=== PATIENT | male | born 1950 | race African-American/Black ===

== ENCOUNTER 2016-03-09 10:23 | Inpatient (IN) | payer OTHER, BC ==
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
[2016-03-09] MEDS ORDERED: MENTHOL/PHENOL 1 EACH UD MM PRN (12:54)
[2016-03-09] MEDS ORDERED: guaiFENesin/D-METHORPHAN HB 10 ML UNIT-DOSE CUPS PO PRN (12:54)
[2016-03-09] MEDS ORDERED: MAG HYDROX/AL HYDROX/SIMETH 30 ML UNIT-DOSE CUP PO PRN (12:54)
[2016-03-09] MEDS ORDERED: P-EPHED 60MG/TRIPROLIDI 2.5MG TABLET PO PRN (12:54)
[2016-03-09] MEDS ORDERED: MAGNESIUM HYDROX 2400MG/30ML ORAL SUSPENSION 30 ML CUP PO PRN (12:54)
[2016-03-09] MEDS ORDERED: LOPERAMIDE HCL 2 MG CAPSULE PO PRN (12:54)
[2016-03-09] MEDS ORDERED: MAGNESIUM CITRATE 300 ML BOTTLE PO PRN (12:54)
[2016-03-09] MEDS ORDERED: DOCUSATE SODIUM 100 MG CAPSULE (FP) PO PRN (13:09)
[2016-03-09] MEDS ORDERED: METHADONE HCL 10 MG TABLET (FOR DETOX USE ONLY) PO ONE ×2 (14:00→23:00)
[2016-03-09] MEDS: cloNIDine HCL 0.1 MG TABLET PO SCH ×2 (14:40→22:24)
[2016-03-09] MEDS: diazePAM 5 MG TABLET PO PRN ×2 (14:40→22:23)
[2016-03-09 16:48] LABS: URINE APPEARANCE CLEAR; URINE BILIRUBIN NEGATIVE (NEGATIVE); URINE BLOOD NEGATIVE (NEGATIVE); URINE COLOR DKYELLOW; URINE GLUCOSE (UA) NEGATIVE (NEGATIVE); URINE KETONE NEGATIVE (NEGATIVE); URINE LEUK ESTERASE NEGATIVE (NEGATIVE); URINE NITRITE NEGATIVE (NEGATIVE); URINE UROBILINOGEN 2.0 E.U/dl E.U./dl (0.2-1.0)
[2016-03-09 17:11] LABS: URINE PROTEIN 2+ (NEGATIVE)
[2016-03-09] MEDS: metFORMIN HCL 500 MG TABLET (FP) PO SCH (17:22)
[2016-03-09 18:26] LABS: URINE MUCUS RARE; URINE RBC 1 /hpf (0-3); URINE WBC 1 /hpf (3-5)
--- NOTE | 2016-03-09 19:33 | PN ---
[facility] Progress Note Note: received nurse call metformin bid requests finger stick bid bgm bid continue detox
[2016-03-09] MEDS: THIAMINE HCL 100 MG TABLET (FP) PO SCH (22:23)
[2016-03-09] MEDS: MYCOPHENOLATE MOFETIL 500 MG PO SCH (22:24)
[2016-03-09] MEDS: TACROLIMUS 1 MG PO SCH (22:24)
[2016-03-09] MEDS: diphenhydrAMINE HCL 50 MG CAPSULE PO PRN (22:25)
[2016-03-10] MEDS: diazePAM 5 MG TABLET PO PRN ×3 (05:41→17:59)
[2016-03-10] MEDS: sitaGLIPtin PHOSPHATE 100 MG TABLET (FP) PO SCH (07:48)
[2016-03-10] MEDS: metFORMIN HCL 500 MG TABLET (FP) PO SCH ×2 (07:48→17:57)
[2016-03-10 10:00] LABS: MCH 27.2 pg (25.7-33.7); MCHC 32.8 g/dl (32.0-35.9); PLATELET COUNT 174 K/MM3 (134-434); RDW 15.2 % (11.9-15.9); WHITE BLOOD COUNT 4.6 K/mm3 (4.0-10.0)
[2016-03-10] MEDS ORDERED: MINOXIDIL 2.5 MG PO SCH (10:00)
[2016-03-10] MEDS ORDERED: METHADONE HCL 10 MG TABLET (FOR DETOX USE ONLY) PO ONE (10:00)
[2016-03-10 10:41] LABS: ALBUMIN 4.2 g/dl (3.4-5.0); ALK PHOS 99 U/L (45-117); ANION GAP 12 (8-16); BILIRUBIN,TOTAL 0.6 mg/dL (0.2-1.0); CALCIUM 9.1 mg/dL (8.5-10.1); CO2 26 mmol/L (21-32); GLUCOSE,RANDOM 104 mg/dL (74-106); SGOT/AST 16 U/L (15-37); SGPT/ALT 19 U/L (12-78); TOT PROT 7.4 g/dl (6.4-8.2)
[2016-03-10] MEDS: cloNIDine HCL 0.1 MG TABLET PO SCH ×2 (10:55→22:14)
[2016-03-10] MEDS: PRENATAL VITAMINS W/ FOLIC ACID TABLET (FP) PO SCH (10:55)
[2016-03-10] MEDS: TACROLIMUS 1 MG PO SCH ×2 (10:56→22:16)
[2016-03-10] MEDS: MINOXIDIL 2.5 MG TABLET PO SCH (10:57)
[2016-03-10] MEDS: MYCOPHENOLATE MOFETIL 500 MG PO SCH ×2 (10:57→22:14)
[2016-03-10 10:58] LABS: SICKLE CELL SCREEN NEGATIVE (NEGATIVE)
--- NOTE | 2016-03-10 13:19 | PN ---
S COWS - Scale Resting Pulse: 0= HI 80 or Below Sweatin= Chills/Flushing Restless Observation: 3= Extraneous Movement Pupil Size: 2= Moderately Dilated Bone or Joint Aches: 4=Acute Joint/Muscle Pain Runny Nose/ Eye Tearin= Nasal Congestion GI Upset > 30mins: 1= Stomach Cramp Tremor Observation of Outstretched Hands: 1= Tremor [place], Not Seen Yawning Observation: 1= 1-2x During Session Anxiety or Irritability: 2=Irritable/Anxious Goose Flesh Skin: 0=Smooth Skin COWS Score: 16 S Progress Note (SOAP) Subjective: ANXIETY,TREMORS,NAUSEA, NO BM X 2-3 DAYS. Objective: 03/10/16 13:18 Vital Signs Temperature 96.2 F L 03/10/16 10:42 Pulse Rate 76 03/10/16 10:42 Respiratory Rate 18 03/10/16 10:42 Blood Pressure 157/81 03/10/16 10:42 O2 Sat by Pulse Oximetry (%) Laboratory Last Values WBC 4.6 K/mm3 (4.0-10.0) 03/10/16 06:00 RBC 5.26 M/mm3 (4.00-5.60) 03/10/16 06:00 Hgb 14.3 GM/dL (11.7-16.9) 03/10/16 06:00 Hct 43.6 % (35.4-49) 03/10/16 06:00 MCV 83.0 fl (80-96) 03/10/16 06:00 MCHC 32.8 g/dl (32.0-35.9) 03/10/16 06:00 RDW 15.2 % (11.9-15.9) 03/10/16 06:00 Plt Count 174 K/MM3 (134-434) 03/10/16 06:00 MPV 10.0 fl (7.5-11.1) 03/10/16 06:00 Sickle Cell Screen Negative (NEGATIVE) 03/10/16 06:00 Sodium 138 mmol/L (136-145) 03/10/16 06:00 Potassium 3.5 mmol/L (3.5-5.1) 03/10/16 06:00 Chloride 100 mmol/L (98-107) 03/10/16 06:00 Carbon Dioxide 26 mmol/L (21-32) 03/10/16 06:00 Anion Gap 12 (8-16) 03/10/16 06:00 BUN 9 mg/dL (7-18) 03/10/16 06:00 Creatinine 1.0 mg/dL (0.7-1.3) 03/10/16 06:00 Creat Clearance w eGFR > 60 (>60) 03/10/16 06:00 POC Glucometer 101 UNITS (()) 03/10/16 05:43 Random Glucose 104 mg/dL (74-106) 03/10/16 06:00 Calcium 9.1 mg/dL (8.5-10.1) 03/10/16 06:00 Total Bilirubin 0.6 mg/dL (0.2-1.0) 03/10/16 06:00 AST 16 U/L (15-37) 03/10/16 06:00 ALT 19 U/L (12-78) 03/10/16 06:00 Alkaline Phosphatase 99 U/L (45-117) 03/10/16 06:00 Total Protein 7.4 g/dl (6.4-8.2) 03/10/16 06:00 Albumin 4.2 g/dl (3.4-5.0) 03/10/16 06:00 Urine Color Dkyellow 03/09/16 14:00 Urine Appearance Clear 03/09/16 14:00 Urine pH 6.0 (5.0-8.0) 03/09/16 14:00 Ur Specific [place] 1.025 (1.001-1.035) 03/09/16 14:00 Urine Protein 2+ (NEGATIVE) H 03/09/16 14:00 Urine Glucose (UA) Negative (NEGATIVE) 03/09/16 14:00 Urine Ketones Negative (NEGATIVE) 03/09/16 14:00 Urine Blood Negative (NEGATIVE) 03/09/16 14:00 Urine Nitrite Negative (NEGATIVE) 03/09/16 14:00 Urine Bilirubin Negative (NEGATIVE) 03/09/16 14:00 Urine Urobilinogen 2.0 e.u/dl E.U./dl (0.2-1.0) 03/09/16 14:00 Ur Leukocyte Esterase Negative (NEGATIVE) 03/09/16 14:00 Urine RBC 1 /hpf (0-3) 03/09/16 14:00 Urine WBC 1 /hpf (3-5) 03/09/16 14:00 Ur Epithelial Cells Rare /hpf (FEW) 03/09/16 14:00 Urine Mucus Rare 03/09/16 14:00 RPR Titer Nonreactive (NONREACTIVE) 03/10/16 06:00 Assessment: 03/10/16 13:18 WITHDRAWAL SX Plan: CONTINUE DETOX
--- NOTE | 2016-03-10 14:29 | EKG ---
Test Reason : Blood Pressure : / mmHG Vent. Rate : 064 BPM Atrial Rate : 064 BPM P-R Int : 178 ms QRS Dur : 078 ms QT Int : 466 ms P-R-T Axes : 019 025 171 degrees QTc Int : 480 ms NORMAL SINUS RHYTHM LEFT VENTRICULAR HYPERTROPHY WITH REPOLARIZATION ABNORMALITY PROLONGED QT ABNORMAL ECG NO PREVIOUS ECGS AVAILABLE Confirmed by JEAN-PAUL MADRIGAL MD ([id number]) on 03/10/2016 2:28:54 PM Referred By: Confirmed By:JEAN-PAUL MADRIGAL MD
--- NOTE | 2016-03-10 15:58 | CONSULT ---
[facility] Psychiatric Consult - Data Date of interview: 03/10/16 Admission source: [facility] Identifying data: This is 65 years old male with no pschiatric hospitalization history intoixicated with : Opioids and Nicotine Substance Abuse History: - Smoking Cessation. Smoking history: Former smoker. Have you smoked in the past 12 months: No. Aproximately how many cigarettes per day: 0. If you are a former smoker, when did you quit?: 25 yrs ago. Cigars Per Day: 0. Hx Chewing Tobacco Use: No. Initiated information on smoking cessation: Yes. 'Breaking Loose' booklet given: 03/09/16. - Substance & Tx. History. Hx Alcohol Use: No. Hx Substance Use: Yes. Substance Use Type : Heroin. Hx Substance Use Treatment: Yes. - Substances Abused. Heroin. Route: Inhalation. Frequency: Daily. Amount used: 10 BAGS. Age of first use: 16. Date of Last Use: 03/08/16. PERCOCET. Route: Oral. Frequency: Daily. Amount used: 50MG. Age of first use: 62. Date of Last Use: 03/02/16 Medical History: HTN Psychiatric History: Patient reports history of Bipolar disorder, reports taking prior to admission: Ambien 10mg po as needed Physical/Sexual Abuse/Trauma History: Denies Additional Comment: Ambien 10mg po as needed. Observation Mental Status Exam - Mental Status Exam Alert and Oriented to: Person Cognitive Function: Fair Patient Appearance: Unkempt Mood: Apprehensive Affect: Mood Congruent Patient Behavior: Cooperative Speech Pattern: Appropriate Voice Loudness: Mildly Soft/Quiet Thought Process: Goal Oriented Thought Disorder: Being Controlled Hallucinations: Denies Suicidal Ideation: Denies Homicidal Ideation: Denies Insight/Judgement: Fair Sleep: Difficulty falling asleep Appetite: Fair Muscle strength/Tone: Normal Gait/Station: Normal Additional Comments: Ambien 10mg po as needed Psychiatric Findings - Problem List ([place] 1, 2,3) (1) Opioid dependence with withdrawal Current Visit: Yes Status: Acute (2) Nicotine dependence Current Visit: Yes Status: Acute (3) Drug-induced mood disorder Current Visit: Yes Status: Suspected (4) Bipolar disorder Current Visit: Yes Status: Suspected - Initial Treatment Plan Initial Treatment Plan: Ambien 10mg po prn for insomnia
[2016-03-10] MEDS: ZOLPIDEM TARTRATE 10 MG TABLET (PARK CARE ONLY) PO PRN (22:14)
[2016-03-10] MEDS: THIAMINE HCL 100 MG TABLET (FP) PO SCH (22:14)
[2016-03-11] MEDS: diazePAM 5 MG TABLET PO PRN ×3 (05:37→17:26)
[2016-03-11] MEDS: metFORMIN HCL 500 MG TABLET (FP) PO SCH ×2 (07:49→17:26)
[2016-03-11] MEDS: sitaGLIPtin PHOSPHATE 100 MG TABLET (FP) PO SCH (07:49)
[2016-03-11] MEDS ORDERED: METHADONE HCL 5 MG TABLET (FOR DETOX USE ONLY) PO ONE (10:00)
[2016-03-11] MEDS: TACROLIMUS 1 MG PO SCH ×2 (10:27→22:14)
[2016-03-11] MEDS: MYCOPHENOLATE MOFETIL 500 MG PO SCH ×2 (10:28→22:14)
[2016-03-11] MEDS: MINOXIDIL 2.5 MG TABLET PO SCH (10:28)
[2016-03-11] MEDS: PRENATAL VITAMINS W/ FOLIC ACID TABLET (FP) PO SCH (10:29)
[2016-03-11] MEDS: METOPROLOL TARTRATE 50 MG TABLET (FP) PO SCH ×2 (10:29→22:13)
[2016-03-11] MEDS: cloNIDine HCL 0.1 MG TABLET PO SCH ×2 (10:29→22:14)
[2016-03-11] MEDS: ASPIRIN 81 MG CHEWABLE TABLETS PO SCH (10:29)
[2016-03-11] MEDS: DOCUSATE SODIUM 100 MG CAPSULE (FP) PO SCH (10:29)
--- NOTE | 2016-03-11 11:28 | PN ---
S COWS - Scale Resting Pulse: 1= [place] 81-100 Sweatin= Chills/Flushing Restless Observation: 3= Extraneous Movement Pupil Size: 2= Moderately Dilated Bone or Joint Aches: 4=Acute Joint/Muscle Pain Runny Nose/ Eye Tearin= Nasal Congestion GI Upset > 30mins: 1= Stomach Cramp Tremor Observation of Outstretched Hands: 1= Tremor [place], Not Seen Yawning Observation: 2= >3x During Session Anxiety or Irritability: 2=Irritable/Anxious Goose Flesh Skin: 0=Smooth Skin COWS Score: 18 BHS Progress Note (SOAP) Subjective: ANXIETY,SWEATS,FATIGUE. Objective: 03/11/16 11:27 Vital Signs Temperature 98.1 F 03/11/16 10:06 Pulse Rate 92 H 03/11/16 10:06 Respiratory Rate 20 03/11/16 10:06 Blood Pressure 163/89 03/11/16 10:06 O2 Sat by Pulse Oximetry (%) Laboratory Last Values WBC 4.6 K/mm3 (4.0-10.0) 03/10/16 06:00 RBC 5.26 M/mm3 (4.00-5.60) 03/10/16 06:00 Hgb 14.3 GM/dL (11.7-16.9) 03/10/16 06:00 Hct 43.6 % (35.4-49) 03/10/16 06:00 MCV 83.0 fl (80-96) 03/10/16 06:00 MCHC 32.8 g/dl (32.0-35.9) 03/10/16 06:00 RDW 15.2 % (11.9-15.9) 03/10/16 06:00 Plt Count 174 K/MM3 (134-434) 03/10/16 06:00 MPV 10.0 fl (7.5-11.1) 03/10/16 06:00 Sickle Cell Screen Negative (NEGATIVE) 03/10/16 06:00 Sodium 138 mmol/L (136-145) 03/10/16 06:00 Potassium 3.5 mmol/L (3.5-5.1) 03/10/16 06:00 Chloride 100 mmol/L (98-107) 03/10/16 06:00 Carbon Dioxide 26 mmol/L (21-32) 03/10/16 06:00 Anion Gap 12 (8-16) 03/10/16 06:00 BUN 9 mg/dL (7-18) 03/10/16 06:00 Creatinine 1.0 mg/dL (0.7-1.3) 03/10/16 06:00 Creat Clearance w eGFR > 60 (>60) 03/10/16 06:00 POC Glucometer 102 UNITS (()) 03/11/16 05:36 Random Glucose 104 mg/dL (74-106) 03/10/16 06:00 Calcium 9.1 mg/dL (8.5-10.1) 03/10/16 06:00 Total Bilirubin 0.6 mg/dL (0.2-1.0) 03/10/16 06:00 AST 16 U/L (15-37) 03/10/16 06:00 ALT 19 U/L (12-78) 03/10/16 06:00 Alkaline Phosphatase 99 U/L (45-117) 03/10/16 06:00 Total Protein 7.4 g/dl (6.4-8.2) 03/10/16 06:00 Albumin 4.2 g/dl (3.4-5.0) 03/10/16 06:00 Urine Color Dkyellow 03/09/16 14:00 Urine Appearance Clear 03/09/16 14:00 Urine pH 6.0 (5.0-8.0) 03/09/16 14:00 Ur Specific [place] 1.025 (1.001-1.035) 03/09/16 14:00 Urine Protein 2+ (NEGATIVE) H 03/09/16 14:00 Urine Glucose (UA) Negative (NEGATIVE) 03/09/16 14:00 Urine Ketones Negative (NEGATIVE) 03/09/16 14:00 Urine Blood Negative (NEGATIVE) 03/09/16 14:00 Urine Nitrite Negative (NEGATIVE) 03/09/16 14:00 Urine Bilirubin Negative (NEGATIVE) 03/09/16 14:00 Urine Urobilinogen 2.0 e.u/dl E.U./dl (0.2-1.0) 03/09/16 14:00 Ur Leukocyte Esterase Negative (NEGATIVE) 03/09/16 14:00 Urine RBC 1 /hpf (0-3) 03/09/16 14:00 Urine WBC 1 /hpf (3-5) 03/09/16 14:00 Ur Epithelial Cells Rare /hpf (FEW) 03/09/16 14:00 Urine Mucus Rare 03/09/16 14:00 RPR Titer Nonreactive (NONREACTIVE) 03/10/16 06:00 Assessment: 03/11/16 11:28 WITHDRAWAL SX Plan: CONTINUE DETOX
[2016-03-11] MEDS: ZOLPIDEM TARTRATE 10 MG TABLET (PARK CARE ONLY) PO PRN (22:09)
[2016-03-11] MEDS: THIAMINE HCL 100 MG TABLET (FP) PO SCH (22:10)
[2016-03-12] MEDS: diazePAM 5 MG TABLET PO PRN ×2 (05:31→10:39)
[2016-03-12] MEDS: sitaGLIPtin PHOSPHATE 100 MG TABLET (FP) PO SCH (07:26)
[2016-03-12] MEDS: metFORMIN HCL 500 MG TABLET (FP) PO SCH ×2 (07:26→17:34)
[2016-03-12] MEDS ORDERED: METHADONE HCL 5 MG TABLET (FOR DETOX USE ONLY) PO ONE (10:00)
[2016-03-12] MEDS: DOCUSATE SODIUM 100 MG CAPSULE (FP) PO SCH (10:33)
[2016-03-12] MEDS: METOPROLOL TARTRATE 50 MG TABLET (FP) PO SCH ×2 (10:34→22:05)
[2016-03-12] MEDS: cloNIDine HCL 0.1 MG TABLET PO SCH ×2 (10:34→22:05)
[2016-03-12] MEDS: ASPIRIN 81 MG CHEWABLE TABLETS PO SCH (10:34)
[2016-03-12] MEDS: MYCOPHENOLATE MOFETIL 500 MG PO SCH ×2 (10:35→22:05)
[2016-03-12] MEDS: TACROLIMUS 1 MG PO SCH ×2 (10:35→22:06)
[2016-03-12] MEDS: MINOXIDIL 2.5 MG TABLET PO SCH (10:36)
[2016-03-12] MEDS: PRENATAL VITAMINS W/ FOLIC ACID TABLET (FP) PO SCH (10:36)
[2016-03-12] MEDS: ACETAMINOPHEN 325 MG TABLET (FP) PO PRN (10:37)
--- NOTE | 2016-03-12 11:14 | PN ---
[facility] Progress Note (SOAP) Subjective: SWEATING,INTERRUPTED SLEEP,RESTLESS Objective: 03/12/16 11:13 Vital Signs - 8 hr 03/12/16 03/12/16 03/12/16 03:25 06:32 07:46 Temperature 97.6 F Pulse Rate 70 74 82 Respiratory 18 18 Rate Blood Pressure 154/97 136/88 03/12/16 11:00 Temperature 97 F L Pulse Rate 78 Respiratory 20 Rate Blood Pressure 179/87 Laboratory Tests 03/09/16 03/09/16 03/09/16 12:42 14:00 15:59 WBC RBC Hgb Hct MCV MCHC RDW Plt Count MPV Sickle Cell Screen Sodium Potassium Chloride Carbon Dioxide Anion Gap BUN Creatinine Creat Clearance w eGFR POC Glucometer 113 130 Random Glucose Calcium Total Bilirubin AST ALT Alkaline Phosphatase Total Protein Albumin Urine Color Dkyellow Urine Appearance Clear Urine pH 6.0 Ur Specific [place] 1.025 Urine Protein 2+ H Urine Glucose (UA) Negative Urine Ketones Negative Urine Blood Negative Urine Nitrite Negative Urine Bilirubin Negative Urine Urobilinogen 2.0 e.u/dl Ur Leukocyte Esterase Negative Urine RBC 1 Urine WBC 1 Ur Epithelial Cells Rare Urine Mucus Rare RPR Titer 03/10/16 03/10/16 03/10/16 05:43 06:00 06:00 WBC 4.6 RBC 5.26 Hgb 14.3 Hct 43.6 MCV 83.0 MCHC 32.8 RDW 15.2 Plt Count 174 MPV 10.0 Sickle Cell Screen Negative Sodium 138 Potassium 3.5 Chloride 100 Carbon Dioxide 26 Anion Gap 12 BUN 9 Creatinine 1.0 Creat Clearance w eGFR > 60 POC Glucometer 101 Random Glucose 104 Calcium 9.1 Total Bilirubin 0.6 AST 16 ALT 19 Alkaline Phosphatase 99 Total Protein 7.4 Albumin 4.2 Urine Color Urine Appearance Urine pH Ur Specific [place] Urine Protein Urine Glucose (UA) Urine Ketones Urine Blood Urine Nitrite Urine Bilirubin Urine Urobilinogen Ur Leukocyte Esterase Urine RBC Urine WBC Ur Epithelial Cells Urine Mucus RPR Titer 03/10/16 03/10/16 03/11/16 06:00 16:22 05:36 WBC RBC Hgb Hct MCV MCHC RDW Plt Count MPV Sickle Cell Screen Sodium Potassium Chloride Carbon Dioxide Anion Gap BUN Creatinine Creat Clearance w eGFR POC Glucometer 102 102 Random Glucose Calcium Total Bilirubin AST ALT Alkaline Phosphatase Total Protein Albumin Urine Color Urine Appearance Urine pH Ur Specific [place] Urine Protein Urine Glucose (UA) Urine Ketones Urine Blood Urine Nitrite Urine Bilirubin Urine Urobilinogen Ur Leukocyte Esterase Urine RBC Urine WBC Ur Epithelial Cells Urine Mucus RPR Titer Nonreactive 03/11/16 03/12/16 16:34 05:29 WBC RBC Hgb Hct MCV MCHC RDW Plt Count MPV Sickle Cell Screen Sodium Potassium Chloride Carbon Dioxide Anion Gap BUN Creatinine Creat Clearance w eGFR POC Glucometer 100 115 Random Glucose Calcium Total Bilirubin AST ALT Alkaline Phosphatase Total Protein Albumin Urine Color Urine Appearance Urine pH Ur Specific [place] Urine Protein Urine Glucose (UA) Urine Ketones Urine Blood Urine Nitrite Urine Bilirubin Urine Urobilinogen Ur Leukocyte Esterase Urine RBC Urine WBC Ur Epithelial Cells Urine Mucus RPR Titer LABS NOTED Assessment: 03/12/16 11:13 WITHDRAWAL SX. Plan: CONTINUE DETOX
[2016-03-12] MEDS: THIAMINE HCL 100 MG TABLET (FP) PO SCH (22:04)
[2016-03-12] MEDS: ZOLPIDEM TARTRATE 10 MG TABLET (PARK CARE ONLY) PO PRN (22:08)
[2016-03-13] MEDS: sitaGLIPtin PHOSPHATE 100 MG TABLET (FP) PO SCH (07:00)
[2016-03-13] MEDS: metFORMIN HCL 500 MG TABLET (FP) PO SCH ×2 (07:00→17:15)
[2016-03-13] MEDS ORDERED: METHADONE HCL 10 MG TABLET (FOR DETOX USE ONLY) PO ONE (10:00)
[2016-03-13] MEDS: PRENATAL VITAMINS W/ FOLIC ACID TABLET (FP) PO SCH (10:10)
[2016-03-13] MEDS: MYCOPHENOLATE MOFETIL 500 MG PO SCH ×2 (10:11→21:30)
[2016-03-13] MEDS: cloNIDine HCL 0.1 MG TABLET PO SCH ×2 (10:11→21:30)
[2016-03-13] MEDS: ASPIRIN 81 MG CHEWABLE TABLETS PO SCH (10:11)
[2016-03-13] MEDS: METOPROLOL TARTRATE 50 MG TABLET (FP) PO SCH ×2 (10:11→21:31)
[2016-03-13] MEDS: TACROLIMUS 1 MG PO SCH ×2 (10:12→21:31)
[2016-03-13] MEDS: MINOXIDIL 2.5 MG TABLET PO SCH (10:13)
[2016-03-13] MEDS: DOCUSATE SODIUM 100 MG CAPSULE (FP) PO SCH (10:39)
--- NOTE | 2016-03-13 14:49 | PN ---
[facility] Progress Note (SOAP) Subjective: Anxious, restless, interrupted sleep, sweating Objective: 03/13/16 14:46 Last Vital Signs Temp Pulse Resp BP Pulse Ox 96.6 F L 71 20 136/84 03/13/16 12:31 03/13/16 12:31 03/13/16 12:31 03/13/16 12:31 Laboratory Tests 03/09/16 03/09/16 03/09/16 12:42 14:00 15:59 WBC RBC Hgb Hct MCV MCHC RDW Plt Count MPV Sickle Cell Screen Sodium Potassium Chloride Carbon Dioxide Anion Gap BUN Creatinine Creat Clearance w eGFR POC Glucometer 113 130 Random Glucose Calcium Total Bilirubin AST ALT Alkaline Phosphatase Total Protein Albumin Urine Color Dkyellow Urine Appearance Clear Urine pH 6.0 Ur Specific [place] 1.025 Urine Protein 2+ H Urine Glucose (UA) Negative Urine Ketones Negative Urine Blood Negative Urine Nitrite Negative Urine Bilirubin Negative Urine Urobilinogen 2.0 e.u/dl Ur Leukocyte Esterase Negative Urine RBC 1 Urine WBC 1 Ur Epithelial Cells Rare Urine Mucus Rare RPR Titer 03/10/16 03/10/16 03/10/16 05:43 06:00 06:00 WBC 4.6 RBC 5.26 Hgb 14.3 Hct 43.6 MCV 83.0 MCHC 32.8 RDW 15.2 Plt Count 174 MPV 10.0 Sickle Cell Screen Negative Sodium 138 Potassium 3.5 Chloride 100 Carbon Dioxide 26 Anion Gap 12 BUN 9 Creatinine 1.0 Creat Clearance w eGFR > 60 POC Glucometer 101 Random Glucose 104 Calcium 9.1 Total Bilirubin 0.6 AST 16 ALT 19 Alkaline Phosphatase 99 Total Protein 7.4 Albumin 4.2 Urine Color Urine Appearance Urine pH Ur Specific [place] Urine Protein Urine Glucose (UA) Urine Ketones Urine Blood Urine Nitrite Urine Bilirubin Urine Urobilinogen Ur Leukocyte Esterase Urine RBC Urine WBC Ur Epithelial Cells Urine Mucus RPR Titer 03/10/16 03/10/16 03/11/16 06:00 16:22 05:36 WBC RBC Hgb Hct MCV MCHC RDW Plt Count MPV Sickle Cell Screen Sodium Potassium Chloride Carbon Dioxide Anion Gap BUN Creatinine Creat Clearance w eGFR POC Glucometer 102 102 Random Glucose Calcium Total Bilirubin AST ALT Alkaline Phosphatase Total Protein Albumin Urine Color Urine Appearance Urine pH Ur Specific [place] Urine Protein Urine Glucose (UA) Urine Ketones Urine Blood Urine Nitrite Urine Bilirubin Urine Urobilinogen Ur Leukocyte Esterase Urine RBC Urine WBC Ur Epithelial Cells Urine Mucus RPR Titer Nonreactive 03/11/16 03/12/16 03/12/16 16:34 05:29 17:33 WBC RBC Hgb Hct MCV MCHC RDW Plt Count MPV Sickle Cell Screen Sodium Potassium Chloride Carbon Dioxide Anion Gap BUN Creatinine Creat Clearance w eGFR POC Glucometer 100 115 120 Random Glucose Calcium Total Bilirubin AST ALT Alkaline Phosphatase Total Protein Albumin Urine Color Urine Appearance Urine pH Ur Specific [place] Urine Protein Urine Glucose (UA) Urine Ketones Urine Blood Urine Nitrite Urine Bilirubin Urine Urobilinogen Ur Leukocyte Esterase Urine RBC Urine WBC Ur Epithelial Cells Urine Mucus RPR Titer 03/13/16 05:40 WBC RBC Hgb Hct MCV MCHC RDW Plt Count MPV Sickle Cell Screen Sodium Potassium Chloride Carbon Dioxide Anion Gap BUN Creatinine Creat Clearance w eGFR POC Glucometer 127 Random Glucose Calcium Total Bilirubin AST ALT Alkaline Phosphatase Total Protein Albumin Urine Color Urine Appearance Urine pH Ur Specific [place] Urine Protein Urine Glucose (UA) Urine Ketones Urine Blood Urine Nitrite Urine Bilirubin Urine Urobilinogen Ur Leukocyte Esterase Urine RBC Urine WBC Ur Epithelial Cells Urine Mucus RPR Titer Labs noted: UA: 2+ protein Assessment: 03/13/16 14:48 Withdrawal symptoms Noted with proteinuria Plan: Continue detox Proteinuria: encouraged to drink more water, repeat UA
[2016-03-13] MEDS: THIAMINE HCL 100 MG TABLET (FP) PO SCH (21:30)
[2016-03-13] MEDS: ACETAMINOPHEN 325 MG TABLET (FP) PO PRN (21:32)
[2016-03-13] MEDS: ZOLPIDEM TARTRATE 10 MG TABLET (PARK CARE ONLY) PO PRN (21:34)
[2016-03-14] MEDS ORDERED: METHADONE HCL 5 MG TABLET (FOR DETOX USE ONLY) PO ONE (06:00)
[2016-03-14] MEDS: metFORMIN HCL 500 MG TABLET (FP) PO SCH ×2 (07:07→17:16)
[2016-03-14] MEDS: sitaGLIPtin PHOSPHATE 100 MG TABLET (FP) PO SCH (07:07)
--- NOTE | 2016-03-14 09:44 | PN ---
[facility] Progress Note (SOAP) Subjective: sweating,interrupted sleep,restless Objective: 03/14/16 09:43 Vital Signs - 8 hr 03/14/16 06:14 Temperature 97.5 F L Pulse Rate 74 Respiratory 18 Rate Blood Pressure 132/88 Assessment: 03/14/16 09:44 withdrawal sx. Plan: continue detox
[2016-03-14] MEDS: TACROLIMUS 1 MG PO SCH ×2 (10:02→23:12)
[2016-03-14] MEDS: MYCOPHENOLATE MOFETIL 500 MG PO SCH ×2 (10:02→21:29)
[2016-03-14] MEDS: PRENATAL VITAMINS W/ FOLIC ACID TABLET (FP) PO SCH (10:03)
[2016-03-14] MEDS: ASPIRIN 81 MG CHEWABLE TABLETS PO SCH (10:03)
[2016-03-14] MEDS: METOPROLOL TARTRATE 50 MG TABLET (FP) PO SCH ×2 (10:04→21:28)
[2016-03-14] MEDS: MINOXIDIL 2.5 MG TABLET PO SCH (10:04)
[2016-03-14] MEDS: cloNIDine HCL 0.1 MG TABLET PO SCH ×2 (10:05→21:28)
[2016-03-14] MEDS: DOCUSATE SODIUM 100 MG CAPSULE (FP) PO SCH (10:58)
[2016-03-14 14:33] LABS: URINE APPEARANCE TURBID; URINE BILIRUBIN NEGATIVE (NEGATIVE); URINE BLOOD NEGATIVE (NEGATIVE); URINE COLOR YELLOW; URINE GLUCOSE (UA) NEGATIVE (NEGATIVE); URINE KETONE NEGATIVE (NEGATIVE); URINE LEUK ESTERASE NEGATIVE (NEGATIVE); URINE NITRITE NEGATIVE (NEGATIVE); URINE UROBILINOGEN NEGATIVE E.U./dl (0.2-1.0)
[2016-03-14 14:35] LABS: URINE PROTEIN 1+ (NEGATIVE)
[2016-03-14 14:40] LABS: URINE MUCUS RARE; URINE WBC <1 /hpf (3-5)
[2016-03-14] MEDS: THIAMINE HCL 100 MG TABLET (FP) PO SCH (21:27)
[2016-03-14] MEDS: diphenhydrAMINE HCL 50 MG CAPSULE PO PRN (23:12)
[2016-03-15] MEDS: diphenhydrAMINE HCL 50 MG CAPSULE PO PRN (02:25)
[2016-03-15] MEDS: sitaGLIPtin PHOSPHATE 100 MG TABLET (FP) PO SCH (07:15)
[2016-03-15] MEDS: metFORMIN HCL 500 MG TABLET (FP) PO SCH ×2 (07:15→17:34)
[2016-03-15] MEDS: MYCOPHENOLATE MOFETIL 500 MG PO SCH ×2 (10:43→22:18)
[2016-03-15] MEDS: DOCUSATE SODIUM 100 MG CAPSULE (FP) PO SCH (10:43)
[2016-03-15] MEDS: MINOXIDIL 2.5 MG TABLET PO SCH (10:43)
[2016-03-15] MEDS: TACROLIMUS 1 MG PO SCH ×2 (10:43→22:19)
[2016-03-15] MEDS: ASPIRIN 81 MG CHEWABLE TABLETS PO SCH (10:43)
[2016-03-15] MEDS: cloNIDine HCL 0.1 MG TABLET PO SCH ×2 (10:43→22:19)
[2016-03-15] MEDS: PRENATAL VITAMINS W/ FOLIC ACID TABLET (FP) PO SCH (10:43)
[2016-03-15] MEDS: METOPROLOL TARTRATE 50 MG TABLET (FP) PO SCH ×2 (10:43→22:19)
--- NOTE | 2016-03-15 12:13 | PN ---
[facility] Progress Note (SOAP) Subjective: ANXIETY,SWEATS,INTERMITTENT SLEEP. Objective: 03/15/16 12:12 Vital Signs Temperature 96.7 F L 03/15/16 11:54 Pulse Rate 77 03/15/16 11:54 Respiratory Rate 18 03/15/16 11:54 Blood Pressure 150/80 03/15/16 11:54 O2 Sat by Pulse Oximetry (%) Assessment: 03/15/16 12:12 WITHDRAWAL SX Plan: CONTINUE DETOX REFER TO REHAB IF BED AVAILABLE.
[2016-03-15] MEDS ORDERED: hydrOXYzine PAMOATE 50 MG CAPSULE (FP) PO ONE (19:39)
--- NOTE | 2016-03-15 19:40 | PN ---
S Progress Note (SOAP) Subjective: anxious Objective: 03/15/16 19:39 124/74 70 10 98 Assessment: 03/15/16 19:40 anxious Plan: Vistaril 50 mg x 1 continue detox
[2016-03-15] MEDS: THIAMINE HCL 100 MG TABLET (FP) PO SCH (22:18)
[2016-03-16] MEDS: sitaGLIPtin PHOSPHATE 100 MG TABLET (FP) PO SCH (07:04)
[2016-03-16] MEDS: metFORMIN HCL 500 MG TABLET (FP) PO SCH ×2 (07:05→16:42)
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
[2016-03-16] MEDS: DOCUSATE SODIUM 100 MG CAPSULE (FP) PO SCH (10:28)
[2016-03-16] MEDS: PRENATAL VITAMINS W/ FOLIC ACID TABLET (FP) PO SCH (10:28)
[2016-03-16] MEDS: cloNIDine HCL 0.1 MG TABLET PO SCH ×2 (10:28→21:16)
[2016-03-16] MEDS: METOPROLOL TARTRATE 50 MG TABLET (FP) PO SCH ×2 (10:28→21:16)
[2016-03-16] MEDS: MYCOPHENOLATE MOFETIL 500 MG PO SCH ×2 (10:29→21:15)
[2016-03-16] MEDS: ASPIRIN 81 MG CHEWABLE TABLETS PO SCH (10:29)
[2016-03-16] MEDS: TACROLIMUS 1 MG PO SCH ×2 (10:29→21:15)
[2016-03-16] MEDS: MINOXIDIL 2.5 MG TABLET PO SCH (10:30)
[2016-03-16 11:35] VITALS: BMI 29.1
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
[2016-03-16] MEDS: ACETAMINOPHEN 325 MG TABLET (FP) PO PRN (18:07)
[2016-03-16 20:34] LABS: URINE APPEARANCE CLEAR; URINE BILIRUBIN NEGATIVE (NEGATIVE); URINE BLOOD NEGATIVE (NEGATIVE); URINE COLOR LTYELLOW; URINE GLUCOSE (UA) NEGATIVE (NEGATIVE); URINE KETONE NEGATIVE (NEGATIVE); URINE LEUK ESTERASE NEGATIVE (NEGATIVE); URINE NITRITE NEGATIVE (NEGATIVE); URINE UROBILINOGEN NEGATIVE E.U./dl (0.2-1.0)
[2016-03-16 20:37] LABS: BASOPHIL 0.7 % (0-2.0); EOSINOPHIL 1.2 % (0-4.5); MCH 27.3 pg (25.7-33.7); MEAN CELL VOLUME 82.7 fl (80-96); NEUTROPHILS 65.8 % (42.8-82.8); PLATELET COUNT 260 K/MM3 (134-434); RDW 15.2 % (11.9-15.9); WHITE BLOOD COUNT 8.4 K/mm3 (4.0-10.0)
[2016-03-16 20:44] LABS: URINE PROTEIN 1+ (NEGATIVE)
[2016-03-16 20:46] LABS: URINE WBC <1 /hpf (3-5); YEAST RARE
[2016-03-16 20:48] LABS: CALCIUM 10.3 mg/dL (8.5-10.1); CREATININE 0.9 mg/dL (0.7-1.3)
[2016-03-16] MEDS: THIAMINE HCL 100 MG TABLET (FP) PO SCH (21:16)
[2016-03-16] MEDS ORDERED: traZODone HCL 100 MG TABLET (FP) PO SCH (22:00)
[2016-03-17] MEDS: diphenhydrAMINE HCL 50 MG CAPSULE PO PRN (00:59)
[2016-03-17] MEDS: sitaGLIPtin PHOSPHATE 100 MG TABLET (FP) PO SCH (06:46)
[2016-03-17] MEDS: metFORMIN HCL 500 MG TABLET (FP) PO SCH ×2 (06:47→16:47)
[2016-03-17] MEDS: CYCLOBENZAPRINE HCL 10 MG TABLET (FP) PO PRN ×2 (06:47→14:28)
[2016-03-17] MEDS: PRENATAL VITAMINS W/ FOLIC ACID TABLET (FP) PO SCH (10:02)
[2016-03-17] MEDS: cloNIDine HCL 0.1 MG TABLET PO SCH ×2 (10:02→22:27)
[2016-03-17] MEDS: DOCUSATE SODIUM 100 MG CAPSULE (FP) PO SCH (10:02)
[2016-03-17] MEDS: ASPIRIN 81 MG CHEWABLE TABLETS PO SCH (10:02)
[2016-03-17] MEDS: METOPROLOL TARTRATE 50 MG TABLET (FP) PO SCH ×2 (10:02→22:27)
[2016-03-17] MEDS: MYCOPHENOLATE MOFETIL 500 MG PO SCH ×2 (10:03→21:18)
[2016-03-17] MEDS: TACROLIMUS 1 MG PO SCH ×2 (10:03→21:19)
[2016-03-17] MEDS: MINOXIDIL 2.5 MG TABLET PO SCH (10:04)
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
[2016-03-17] MEDS: IBUPROFEN 600 MG TABLET (FP) PO PRN ×2 (16:47→21:25)
[2016-03-17] MEDS: THIAMINE HCL 100 MG TABLET (FP) PO SCH (21:18)
[2016-03-17] MEDS: traZODone HCL 50 MG TABLET (FP) PO SCH (21:19)
--- NOTE | 2016-03-17 21:34 | PN ---
[facility] Progress Note Note: bp 116/68 ap 76 hold clonidine 0.1 mg hold metoprolol 100 mg continue rehab
[2016-03-18] MEDS: CYCLOBENZAPRINE HCL 10 MG TABLET (FP) PO PRN ×2 (07:08→14:54)
[2016-03-18] MEDS: IBUPROFEN 600 MG TABLET (FP) PO PRN ×2 (07:09→14:54)
[2016-03-18] MEDS: sitaGLIPtin PHOSPHATE 100 MG TABLET (FP) PO SCH (07:25)
[2016-03-18] MEDS: metFORMIN HCL 500 MG TABLET (FP) PO SCH ×2 (07:25→16:59)
[2016-03-18] MEDS: ASPIRIN 81 MG CHEWABLE TABLETS PO SCH (10:17)
[2016-03-18] MEDS: DOCUSATE SODIUM 100 MG CAPSULE (FP) PO SCH (10:17)
[2016-03-18] MEDS: cloNIDine HCL 0.1 MG TABLET PO SCH ×2 (10:18→21:49)
[2016-03-18] MEDS: METOPROLOL TARTRATE 50 MG TABLET (FP) PO SCH ×2 (10:18→21:49)
[2016-03-18] MEDS: MYCOPHENOLATE MOFETIL 500 MG PO SCH ×2 (10:20→21:50)
[2016-03-18] MEDS: MINOXIDIL 2.5 MG TABLET PO SCH (10:21)
[2016-03-18] MEDS: PRENATAL VITAMINS W/ FOLIC ACID TABLET (FP) PO SCH (10:30)
[2016-03-18] MEDS: TACROLIMUS 1 MG PO SCH ×2 (10:30→21:50)
[2016-03-18] MEDS: traZODone HCL 50 MG TABLET (FP) PO SCH (21:49)
[2016-03-18] MEDS: THIAMINE HCL 100 MG TABLET (FP) PO SCH (21:49)
[2016-03-18] MEDS ORDERED: PT OWN MED DRAWER 7, Y5N ONE (22:32)
[2016-03-19] MEDS: IBUPROFEN 600 MG TABLET (FP) PO PRN ×2 (06:04→14:34)
[2016-03-19] MEDS: CYCLOBENZAPRINE HCL 10 MG TABLET (FP) PO PRN (06:04)
[2016-03-19] MEDS: sitaGLIPtin PHOSPHATE 100 MG TABLET (FP) PO SCH (07:05)
[2016-03-19] MEDS: metFORMIN HCL 500 MG TABLET (FP) PO SCH ×2 (07:05→16:45)
[2016-03-19] MEDS ORDERED: PT OWN MED DRAWER 7, Y5N ONE (09:20)
[2016-03-19] MEDS: PRENATAL VITAMINS W/ FOLIC ACID TABLET (FP) PO SCH (10:42)
[2016-03-19] MEDS: TACROLIMUS 1 MG PO SCH ×2 (10:42→21:37)
[2016-03-19] MEDS: ASPIRIN 81 MG CHEWABLE TABLETS PO SCH (10:42)
[2016-03-19] MEDS: MYCOPHENOLATE MOFETIL 500 MG PO SCH ×2 (10:42→21:36)
[2016-03-19] MEDS: METOPROLOL TARTRATE 50 MG TABLET (FP) PO SCH ×2 (10:42→21:35)
[2016-03-19] MEDS: DOCUSATE SODIUM 100 MG CAPSULE (FP) PO SCH (10:42)
[2016-03-19] MEDS: cloNIDine HCL 0.1 MG TABLET PO SCH ×2 (10:43→21:35)
[2016-03-19] MEDS: MINOXIDIL 2.5 MG TABLET PO SCH (10:43)
[2016-03-19] MEDS: THIAMINE HCL 100 MG TABLET (FP) PO SCH (21:35)
[2016-03-19] MEDS: traZODone HCL 50 MG TABLET (FP) PO SCH (21:35)
[2016-03-20] MEDS: IBUPROFEN 600 MG TABLET (FP) PO PRN ×2 (06:16→21:11)
[2016-03-20] MEDS: CYCLOBENZAPRINE HCL 10 MG TABLET (FP) PO PRN ×2 (06:16→21:11)
[2016-03-20] MEDS: metFORMIN HCL 500 MG TABLET (FP) PO SCH ×2 (07:16→16:50)
[2016-03-20] MEDS: sitaGLIPtin PHOSPHATE 100 MG TABLET (FP) PO SCH (07:17)
[2016-03-20] MEDS: METOPROLOL TARTRATE 50 MG TABLET (FP) PO SCH ×2 (10:15→21:12)
[2016-03-20] MEDS: cloNIDine HCL 0.1 MG TABLET PO SCH ×2 (10:15→21:12)
[2016-03-20] MEDS: PRENATAL VITAMINS W/ FOLIC ACID TABLET (FP) PO SCH (10:15)
[2016-03-20] MEDS: ASPIRIN 81 MG CHEWABLE TABLETS PO SCH (10:15)
[2016-03-20] MEDS: TACROLIMUS 1 MG PO SCH ×2 (10:16→21:13)
[2016-03-20] MEDS: DOCUSATE SODIUM 100 MG CAPSULE (FP) PO SCH (10:16)
[2016-03-20] MEDS: MINOXIDIL 2.5 MG TABLET PO SCH (10:16)
[2016-03-20] MEDS: MYCOPHENOLATE MOFETIL 500 MG PO SCH ×2 (10:16→21:13)
[2016-03-20] MEDS: traZODone HCL 50 MG TABLET (FP) PO SCH (21:12)
[2016-03-20] MEDS: THIAMINE HCL 100 MG TABLET (FP) PO SCH (21:12)
[2016-03-20] MEDS: diphenhydrAMINE HCL 50 MG CAPSULE PO PRN (21:12)
[2016-03-21] MEDS: metFORMIN HCL 500 MG TABLET (FP) PO SCH ×2 (06:54→16:41)
[2016-03-21] MEDS: sitaGLIPtin PHOSPHATE 100 MG TABLET (FP) PO SCH (06:54)
[2016-03-21] MEDS: CYCLOBENZAPRINE HCL 10 MG TABLET (FP) PO PRN (06:55)
[2016-03-21] MEDS: IBUPROFEN 600 MG TABLET (FP) PO PRN ×2 (06:55→16:43)
[2016-03-21] MEDS: METOPROLOL TARTRATE 50 MG TABLET (FP) PO SCH ×2 (09:58→21:11)
[2016-03-21] MEDS: TACROLIMUS 1 MG PO SCH ×2 (09:58→21:10)
[2016-03-21] MEDS: MYCOPHENOLATE MOFETIL 500 MG PO SCH ×2 (09:58→21:11)
[2016-03-21] MEDS: PRENATAL VITAMINS W/ FOLIC ACID TABLET (FP) PO SCH (09:58)
[2016-03-21] MEDS: MINOXIDIL 2.5 MG TABLET PO SCH (09:58)
[2016-03-21] MEDS: DOCUSATE SODIUM 100 MG CAPSULE (FP) PO SCH (09:59)
[2016-03-21] MEDS: ASPIRIN 81 MG CHEWABLE TABLETS PO SCH (09:59)
[2016-03-21] MEDS: cloNIDine HCL 0.1 MG TABLET PO SCH ×2 (09:59→21:11)
[2016-03-21] MEDS: THIAMINE HCL 100 MG TABLET (FP) PO SCH (21:11)
[2016-03-21] MEDS: traZODone HCL 50 MG TABLET (FP) PO SCH (21:11)
[2016-03-22] MEDS: sitaGLIPtin PHOSPHATE 100 MG TABLET (FP) PO SCH (06:33)
[2016-03-22] MEDS: metFORMIN HCL 500 MG TABLET (FP) PO SCH ×2 (06:33→16:45)
[2016-03-22] MEDS: PRENATAL VITAMINS W/ FOLIC ACID TABLET (FP) PO SCH (09:58)
[2016-03-22] MEDS: METOPROLOL TARTRATE 50 MG TABLET (FP) PO SCH ×2 (09:58→21:38)
[2016-03-22] MEDS: DOCUSATE SODIUM 100 MG CAPSULE (FP) PO SCH (09:58)
[2016-03-22] MEDS: cloNIDine HCL 0.1 MG TABLET PO SCH ×2 (09:59→21:38)
[2016-03-22] MEDS: MINOXIDIL 2.5 MG TABLET PO SCH (09:59)
[2016-03-22] MEDS: CYCLOBENZAPRINE HCL 10 MG TABLET (FP) PO PRN (09:59)
[2016-03-22] MEDS: ASPIRIN 81 MG CHEWABLE TABLETS PO SCH (09:59)
[2016-03-22] MEDS: TACROLIMUS 1 MG PO SCH ×2 (10:00→21:37)
[2016-03-22] MEDS: IBUPROFEN 600 MG TABLET (FP) PO PRN (10:01)
[2016-03-22] MEDS: MYCOPHENOLATE MOFETIL 500 MG PO SCH ×2 (10:03→21:37)
--- NOTE | 2016-03-22 11:33 | PN ---
[facility] Progress Note Note: AMMONIA LEVEL IS 77.82,WILL GIVE LACTULOSE 20 GRAMS PO TID
[2016-03-22] MEDS: LACTULOSE 20 GM/30 ML UDC (FOR ORAL USE ONLY) PO SCH ×2 (14:25→21:38)
[2016-03-22] MEDS: traZODone HCL 50 MG TABLET (FP) PO SCH (21:37)
[2016-03-22] MEDS: THIAMINE HCL 100 MG TABLET (FP) PO SCH (21:39)
[2016-03-23] MEDS: sitaGLIPtin PHOSPHATE 100 MG TABLET (FP) PO SCH (06:20)
[2016-03-23] MEDS: metFORMIN HCL 500 MG TABLET (FP) PO SCH ×2 (06:20→16:42)
[2016-03-23] MEDS: LACTULOSE 20 GM/30 ML UDC (FOR ORAL USE ONLY) PO SCH ×3 (06:20→21:15)
[2016-03-23] MEDS: ASPIRIN 81 MG CHEWABLE TABLETS PO SCH (09:48)
[2016-03-23] MEDS: PRENATAL VITAMINS W/ FOLIC ACID TABLET (FP) PO SCH (09:48)
[2016-03-23] MEDS: METOPROLOL TARTRATE 50 MG TABLET (FP) PO SCH ×2 (09:48→21:14)
[2016-03-23] MEDS: cloNIDine HCL 0.1 MG TABLET PO SCH ×2 (09:48→21:14)
[2016-03-23] MEDS: DOCUSATE SODIUM 100 MG CAPSULE (FP) PO SCH (09:48)
[2016-03-23] MEDS: MINOXIDIL 2.5 MG TABLET PO SCH (09:49)
[2016-03-23] MEDS: TACROLIMUS 1 MG PO SCH ×2 (09:49→21:13)
[2016-03-23] MEDS ORDERED: PT OWN MED DRAWER 7, Y5N ONE (09:51)
[2016-03-23] MEDS: MYCOPHENOLATE MOFETIL 500 MG PO SCH ×2 (09:52→21:13)
[2016-03-23] MEDS: CYCLOBENZAPRINE HCL 10 MG TABLET (FP) PO PRN (09:52)
[2016-03-23] MEDS: traZODone HCL 50 MG TABLET (FP) PO SCH (21:14)
[2016-03-23] MEDS: IBUPROFEN 600 MG TABLET (FP) PO PRN (21:14)
[2016-03-23] MEDS: THIAMINE HCL 100 MG TABLET (FP) PO SCH (21:15)
[2016-03-24] MEDS: LACTULOSE 20 GM/30 ML UDC (FOR ORAL USE ONLY) PO SCH ×2 (06:18→21:52)
[2016-03-24] MEDS: sitaGLIPtin PHOSPHATE 100 MG TABLET (FP) PO SCH (07:25)
[2016-03-24] MEDS: metFORMIN HCL 500 MG TABLET (FP) PO SCH ×2 (07:25→16:59)
[2016-03-24] MEDS: PRENATAL VITAMINS W/ FOLIC ACID TABLET (FP) PO SCH (09:56)
[2016-03-24] MEDS: DOCUSATE SODIUM 100 MG CAPSULE (FP) PO SCH (09:56)
[2016-03-24] MEDS: MINOXIDIL 2.5 MG TABLET PO SCH (09:57)
[2016-03-24] MEDS: METOPROLOL TARTRATE 50 MG TABLET (FP) PO SCH ×2 (09:57→21:51)
[2016-03-24] MEDS: cloNIDine HCL 0.1 MG TABLET PO SCH ×2 (09:57→21:51)
[2016-03-24] MEDS: MYCOPHENOLATE MOFETIL 500 MG PO SCH ×2 (09:57→21:52)
[2016-03-24] MEDS: ASPIRIN 81 MG CHEWABLE TABLETS PO SCH (09:57)
[2016-03-24] MEDS: TACROLIMUS 1 MG PO SCH ×2 (09:57→21:52)
[2016-03-24] MEDS: CYCLOBENZAPRINE HCL 10 MG TABLET (FP) PO PRN (09:58)
--- NOTE | 2016-03-24 11:33 | PN ---
[facility] Progress Note Note: PATIENT IS [facility] IMPROVED CLINICALLY,ALERT,MORE STABLE ON AMBULATION REQUESTED LECTULOE TO REDUCE TO 20 GARAMS PO BID, WILL REPEAT AMMONIA LEVEL ON Mon02/26/16 D/C NILAY
[2016-03-24] MEDS: diphenhydrAMINE HCL 50 MG CAPSULE PO PRN (21:51)
[2016-03-24] MEDS: traZODone HCL 50 MG TABLET (FP) PO SCH (21:51)
[2016-03-24] MEDS: THIAMINE HCL 100 MG TABLET (FP) PO SCH (21:51)
[2016-03-25] MEDS: metFORMIN HCL 500 MG TABLET (FP) PO SCH ×2 (06:21→16:50)
[2016-03-25] MEDS: sitaGLIPtin PHOSPHATE 100 MG TABLET (FP) PO SCH (06:21)
[2016-03-25] MEDS: IBUPROFEN 600 MG TABLET (FP) PO PRN (06:22)
[2016-03-25] MEDS: cloNIDine HCL 0.1 MG TABLET PO SCH ×2 (10:14→21:45)
[2016-03-25] MEDS: LACTULOSE 20 GM/30 ML UDC (FOR ORAL USE ONLY) PO SCH ×2 (10:14→21:44)
[2016-03-25] MEDS: DOCUSATE SODIUM 100 MG CAPSULE (FP) PO SCH (10:14)
[2016-03-25] MEDS: ASPIRIN 81 MG CHEWABLE TABLETS PO SCH (10:14)
[2016-03-25] MEDS: MYCOPHENOLATE MOFETIL 500 MG PO SCH ×2 (10:14→21:46)
[2016-03-25] MEDS: PRENATAL VITAMINS W/ FOLIC ACID TABLET (FP) PO SCH (10:15)
[2016-03-25] MEDS: MINOXIDIL 2.5 MG TABLET PO SCH (10:15)
[2016-03-25] MEDS: TACROLIMUS 1 MG PO SCH ×2 (10:15→21:46)
[2016-03-25] MEDS: METOPROLOL TARTRATE 50 MG TABLET (FP) PO SCH ×2 (10:15→21:45)
[2016-03-25] MEDS: THIAMINE HCL 100 MG TABLET (FP) PO SCH (21:44)
[2016-03-25] MEDS: diphenhydrAMINE HCL 50 MG CAPSULE PO PRN (21:45)
[2016-03-25] MEDS: traZODone HCL 50 MG TABLET (FP) PO SCH (21:45)
[2016-03-26] MEDS: sitaGLIPtin PHOSPHATE 100 MG TABLET (FP) PO SCH (07:24)
[2016-03-26] MEDS: metFORMIN HCL 500 MG TABLET (FP) PO SCH ×2 (07:24→16:39)
[2016-03-26] MEDS: PRENATAL VITAMINS W/ FOLIC ACID TABLET (FP) PO SCH (09:53)
[2016-03-26] MEDS: LACTULOSE 20 GM/30 ML UDC (FOR ORAL USE ONLY) PO SCH ×2 (09:53→21:04)
[2016-03-26] MEDS: ASPIRIN 81 MG CHEWABLE TABLETS PO SCH (09:54)
[2016-03-26] MEDS: MYCOPHENOLATE MOFETIL 500 MG PO SCH ×2 (09:54→21:02)
[2016-03-26] MEDS: cloNIDine HCL 0.1 MG TABLET PO SCH ×2 (09:54→21:03)
[2016-03-26] MEDS: MINOXIDIL 2.5 MG TABLET PO SCH (09:54)
[2016-03-26] MEDS: TACROLIMUS 1 MG PO SCH ×2 (09:54→21:02)
[2016-03-26] MEDS: DOCUSATE SODIUM 100 MG CAPSULE (FP) PO SCH (09:54)
[2016-03-26] MEDS: METOPROLOL TARTRATE 50 MG TABLET (FP) PO SCH ×2 (09:54→21:02)
[2016-03-26] MEDS: diphenhydrAMINE HCL 50 MG CAPSULE PO PRN (21:03)
[2016-03-26] MEDS: traZODone HCL 50 MG TABLET (FP) PO SCH (21:03)
[2016-03-26] MEDS: THIAMINE HCL 100 MG TABLET (FP) PO SCH (21:04)
[2016-03-27] MEDS: sitaGLIPtin PHOSPHATE 100 MG TABLET (FP) PO SCH (07:01)
[2016-03-27] MEDS: metFORMIN HCL 500 MG TABLET (FP) PO SCH ×2 (07:01→16:50)
[2016-03-27] MEDS ORDERED: PT OWN MED DRAWER 7, Y5N ONE ×2 (08:45→21:22)
[2016-03-27] MEDS: cloNIDine HCL 0.1 MG TABLET PO SCH ×2 (09:58→21:21)
[2016-03-27] MEDS: ASPIRIN 81 MG CHEWABLE TABLETS PO SCH (09:58)
[2016-03-27] MEDS: DOCUSATE SODIUM 100 MG CAPSULE (FP) PO SCH (09:58)
[2016-03-27] MEDS: LACTULOSE 20 GM/30 ML UDC (FOR ORAL USE ONLY) PO SCH ×2 (09:58→21:22)
[2016-03-27] MEDS: METOPROLOL TARTRATE 50 MG TABLET (FP) PO SCH ×2 (09:58→21:21)
[2016-03-27] MEDS: MYCOPHENOLATE MOFETIL 500 MG PO SCH ×2 (09:59→21:20)
[2016-03-27] MEDS: TACROLIMUS 1 MG PO SCH ×2 (09:59→21:22)
[2016-03-27] MEDS: MINOXIDIL 2.5 MG TABLET PO SCH (09:59)
[2016-03-27] MEDS: IBUPROFEN 600 MG TABLET (FP) PO PRN (10:00)
[2016-03-27] MEDS: PRENATAL VITAMINS W/ FOLIC ACID TABLET (FP) PO SCH (10:01)
[2016-03-27] MEDS: traZODone HCL 50 MG TABLET (FP) PO SCH (21:20)
[2016-03-27] MEDS: diphenhydrAMINE HCL 50 MG CAPSULE PO PRN (21:21)
[2016-03-27] MEDS: THIAMINE HCL 100 MG TABLET (FP) PO SCH (21:21)
[2016-03-28] MEDS: sitaGLIPtin PHOSPHATE 100 MG TABLET (FP) PO SCH (06:19)
[2016-03-28] MEDS: metFORMIN HCL 500 MG TABLET (FP) PO SCH ×2 (06:19→16:52)
[2016-03-28] MEDS: DOCUSATE SODIUM 100 MG CAPSULE (FP) PO SCH (09:49)
[2016-03-28] MEDS: LACTULOSE 20 GM/30 ML UDC (FOR ORAL USE ONLY) PO SCH ×3 (09:49→21:36)
[2016-03-28] MEDS: ASPIRIN 81 MG CHEWABLE TABLETS PO SCH (09:49)
[2016-03-28] MEDS: cloNIDine HCL 0.1 MG TABLET PO SCH ×2 (09:49→21:36)
[2016-03-28] MEDS: MYCOPHENOLATE MOFETIL 500 MG PO SCH ×2 (09:49→21:36)
[2016-03-28] MEDS: METOPROLOL TARTRATE 50 MG TABLET (FP) PO SCH ×2 (09:49→21:36)
[2016-03-28] MEDS: PRENATAL VITAMINS W/ FOLIC ACID TABLET (FP) PO SCH (09:50)
[2016-03-28] MEDS: TACROLIMUS 1 MG PO SCH ×2 (09:50→21:37)
[2016-03-28] MEDS: MINOXIDIL 2.5 MG TABLET PO SCH (09:50)
[2016-03-28] MEDS ORDERED: PT OWN MED DRAWER 7, Y5N ONE (09:54)
[2016-03-28] MEDS: THIAMINE HCL 100 MG TABLET (FP) PO SCH (21:36)
[2016-03-28] MEDS: traZODone HCL 50 MG TABLET (FP) PO SCH (21:36)
[2016-03-28] MEDS: diphenhydrAMINE HCL 50 MG CAPSULE PO PRN (21:36)
[2016-03-28] MEDS ORDERED: LACTULOSE 20 GM/30 ML UDC (FOR ORAL USE ONLY) PO SCH (22:00)
[2016-03-29] MEDS: LACTULOSE 20 GM/30 ML UDC (FOR ORAL USE ONLY) PO SCH ×3 (06:17→22:17)
[2016-03-29] MEDS: metFORMIN HCL 500 MG TABLET (FP) PO SCH ×2 (07:13→16:51)
[2016-03-29] MEDS: sitaGLIPtin PHOSPHATE 100 MG TABLET (FP) PO SCH (07:14)
[2016-03-29] MEDS: METOPROLOL TARTRATE 50 MG TABLET (FP) PO SCH ×2 (10:21→22:16)
[2016-03-29] MEDS: cloNIDine HCL 0.1 MG TABLET PO SCH ×2 (10:21→22:16)
[2016-03-29] MEDS: DOCUSATE SODIUM 100 MG CAPSULE (FP) PO SCH (10:21)
[2016-03-29] MEDS: ASPIRIN 81 MG CHEWABLE TABLETS PO SCH (10:21)
[2016-03-29] MEDS: PRENATAL VITAMINS W/ FOLIC ACID TABLET (FP) PO SCH (10:21)
[2016-03-29] MEDS: MYCOPHENOLATE MOFETIL 500 MG PO SCH ×2 (10:21→22:17)
[2016-03-29] MEDS: TACROLIMUS 1 MG PO SCH ×2 (10:22→22:18)
[2016-03-29] MEDS: MINOXIDIL 2.5 MG TABLET PO SCH (10:25)
[2016-03-29] MEDS: diphenhydrAMINE HCL 50 MG CAPSULE PO PRN (22:16)
[2016-03-29] MEDS: traZODone HCL 50 MG TABLET (FP) PO SCH (22:16)
[2016-03-29] MEDS: THIAMINE HCL 100 MG TABLET (FP) PO SCH (22:18)
[2016-03-30] MEDS: LACTULOSE 20 GM/30 ML UDC (FOR ORAL USE ONLY) PO SCH (06:54)
[2016-03-30] MEDS: metFORMIN HCL 500 MG TABLET (FP) PO SCH (07:23)
[2016-03-30] MEDS: sitaGLIPtin PHOSPHATE 100 MG TABLET (FP) PO SCH (07:23)
[2016-03-30 08:03] VITALS: TEMP 98.2
--- NOTE | 2016-03-30 09:42 | PN ---
Psychiatric Progress Note Vital Signs: Vital Signs Period Temp Pulse Resp BP Sys/Gaona Pulse Ox Last 24 Hr 98.2 F 70-111 18-20 109-157/73-93 Date of Session: 03/30/16 Chief Complaint:: Discharge visit HPI: Patient addressed Opioid dependence comorbid with substance induced mood disorder. ROS: Significant for HTN,Kidney transplant,Hep C (treated),S/P Hepatic encephalopathy,DM,Hyperlipidemia. Current Medications: Active Medications Generic Name Dose Route Start Last Admin Trade Name Freq PRN Reason Stop Dose Admin Al Hydroxide/Mg Hydroxide 30 ml 03/09/16 12:54 Mylanta Oral Suspension - PO Q6H PRN DYSPEPSIA Aspirin 81 mg 03/11/16 10:00 03/29/16 10:21 Asa - PO 81 mg DAILY NAYELI Administration Clonidine 0.1 mg 03/09/16 14:00 03/29/16 22:16 Catapres - PO 0.1 mg BID NAYELI Administration Diphenhydramine HCl 50 mg 03/09/16 12:54 03/29/16 22:16 Benadryl - PO 50 mg HSMR1 PRN Administration INSOMNIA Docusate Sodium 300 mg 03/11/16 10:00 03/29/16 10:21 Colace - PO 300 mg DAILY NAYELI Administration Eucalyptus/Menthol/Phenol/Sorbitol 1 each 03/09/16 12:54 Cepastat Lozenge - MM Q4H PRN SORE THROAT Guaifenesin 10 ml 03/09/16 12:54 Robitussin Dm - PO Q6H PRN COUGH Ibuprofen 600 mg 03/17/16 15:20 03/27/16 10:00 Motrin - PO 600 mg Q6H PRN Administration FEVER Lactulose 20 gm 03/28/16 20:00 03/30/16 06:54 Cephulac (Oral Use) PO 20 gm TID NAYELI Administration Loperamide HCl 4 mg 03/09/16 12:54 Imodium - PO Q6H PRN DIARRHEA Magnesium Citrate 300 ml 03/09/16 12:54 Citroma - PO Q48H PRN CONSTIPATION Magnesium Hydroxide 30 ml 03/09/16 12:54 Milk Of Magnesia - PO DAILY PRN CONSTIPATION Metformin HCl 500 mg 03/09/16 16:30 03/30/16 07:23 Glucophage - PO 500 mg BIDAC NAYELI Administration Metoprolol Tartrate 100 mg 03/17/16 21:36 03/29/16 22:16 Lopressor - PO 100 mg BID NAYELI Administration Minoxidil 5 mg 03/10/16 10:00 03/29/16 10:25 Lonitin - PO 5 mg DAILY NAYELI Administration Mycophenolate Mofetil 500 mg 03/09/16 22:00 03/29/16 22:17 Cellcept - PO 500 mg BID NAYELI Administration Multivit/Folic Acid/Iron 1 tab 03/10/16 10:00 03/29/16 10:21 Vitamins (Sjr) - PO 1 tab DAILY NAYELI Administration Pseudoephedrine/Triprolidine 1 combo 03/09/16 12:54 Actifed - PO TID PRN NASAL CONGESTION Sitagliptin Phosphate 100 mg 03/10/16 07:00 03/30/16 07:23 Januvia - PO 100 mg DAILY@0700 NAYELI Administration Tacrolimus 4 mg 03/09/16 22:00 03/29/16 22:18 Prograf (Non-Formulary) PO 4 mg BID NAYELI Administration Thiamine HCl 100 mg 03/09/16 22:00 03/29/16 22:18 Vitamin B1 - PO 100 mg HS NAYELI Administration Trazodone HCl 150 mg 03/17/16 22:00 03/29/16 22:16 Desyrel - PO 150 mg HS NAYELI Administration Current Side Effect: No Lab tests ordered: No Lab tests reviewed: Yes Provider note:: PAtient comleted this program today.He has met his treatment goals and will continue to address his issues on outpatient basis at [facility] .Patient continues to find that Trazodone 50 mg po hs prn helps to reduce his onsomnoa.script provided. Therapy provided focusindg on relapse prevention,including support system,coping skills utilization. Patient is stable for discharge today. Total face to face time:: 30 Mental Status Exam - Mental Status Exam Alert and Oriented to: Time, Place, Person Cognitive Function: Grossly Intact Patient Appearance: Well Groomed Mood: Euthymic Affect: Appropriate, Mood Congruent Patient Behavior: Cooperative Speech Pattern: Clear Voice Loudness: Normal Thought Process: Goal Oriented Thought Disorder: Not Present Hallucinations: Denies Suicidal Ideation: Denies Homicidal Ideation: Denies Insight/Judgement: Fair Sleep: Difficulty falling asleep Appetite: Poor Muscle strength/Tone: Normal Gait/Station: Normal Psychiatric Treatment Plan - Problem List (1) Opioid dependence with withdrawal Current Visit: Yes (2) Substance induced mood disorder Current Visit: Yes (3) Substance-induced sleep disorder Current Visit: Yes (4) Diabetes Current Visit: Yes (5) HTN (hypertension) Current Visit: Yes Qualifiers: Hypertension type: essential hypertension Qualified Code(s): I10 - Essential (primary) hypertension (6) Hepatitis C Current Visit: Yes Qualifiers: Viral hepatitis chronicity: chronic (7) Hypertriglyceridemia Current Visit: Yes (8) Nicotine dependence Current Visit: Yes Qualifiers: Nicotine product type: cigarettes Substance use status: uncomplicated Qualified Code(s): F17.210 - Nicotine dependence, cigarettes, uncomplicated
[2016-03-30] MEDS: DOCUSATE SODIUM 100 MG CAPSULE (FP) PO SCH (10:20)
[2016-03-30] MEDS: PRENATAL VITAMINS W/ FOLIC ACID TABLET (FP) PO SCH (10:20)
[2016-03-30] MEDS: METOPROLOL TARTRATE 50 MG TABLET (FP) PO SCH (10:20)
[2016-03-30] MEDS: MINOXIDIL 2.5 MG TABLET PO SCH (10:20)
[2016-03-30] MEDS: cloNIDine HCL 0.1 MG TABLET PO SCH (10:20)
[2016-03-30] MEDS: ASPIRIN 81 MG CHEWABLE TABLETS PO SCH (10:20)
[2016-03-30] MEDS ORDERED: PT OWN MED DRAWER 7, Y5N ONE (10:22)
[2016-03-30] MEDS: TACROLIMUS 1 MG PO SCH (10:23)
[2016-03-30] MEDS: MYCOPHENOLATE MOFETIL 500 MG PO SCH (10:25)
[2016-03-30 12:17] VITALS: BP 164/105; PULSE 77
== END 2016-03-30 12:30 | disposition home or self-care (01) | DRG 895 ==
LOC: YASAS 10:23 → Y3N 13:41 → Y3W 03-16 10:47
PROVIDERS: ADMIT Internal Medicine; ATTEND Psychiatry & Neurology Psychiatry
PROC: HZ42ZZZ Group Counseling for Substance Abuse Treatment, Cognitive-Behavioral (ICD-10-PCS; principal; 2016-03-30)
DX: F19.20 Other psychoactive substance dependence, uncomplicated (principal); F11.23 Opioid dependence with withdrawal; F19.282 Other psychoactive substance dependence with psychoactive substance-induced sleep disorder; Z94.0 Kidney transplant status; F17.210 Nicotine dependence, cigarettes, uncomplicated; F19.24 Other psychoactive substance dependence with psychoactive substance-induced mood disorder; F32.9 Major depressive disorder, single episode, unspecified; I10 Essential (primary) hypertension; E11.9 Type 2 diabetes mellitus without complications; Z79.84 Long term (current) use of oral hypoglycemic drugs; B18.2 Chronic viral hepatitis C; E78.1 Pure hyperglyceridemia; Z87.828 Personal history of other (healed) physical injury and trauma
CPT/HCPCS: 36415; 71020-TC; 80048; 80053; 81003; 81015; 82140; 85025; 85027; 85660; 86593; 93005; 93010; J7517

== ENCOUNTER 2016-07-13 10:42 | Inpatient (IN) | payer BC, OTHER ==
[2016-07-13 11:31] VITALS: BMI 27.8
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
[2016-07-13] MEDS ORDERED: IBUPROFEN 400 MG TABLET (FP) PO PRN (14:10)
[2016-07-13] MEDS ORDERED: LOPERAMIDE HCL 2 MG CAPSULE PO PRN (14:10)
[2016-07-13] MEDS ORDERED: MENTHOL/PHENOL 1 EACH UD MM PRN (14:10)
[2016-07-13] MEDS ORDERED: MAGNESIUM CITRATE 300 ML BOTTLE PO PRN (14:10)
[2016-07-13] MEDS ORDERED: ACETAMINOPHEN 325 MG TABLET (FP) PO PRN (14:10)
[2016-07-13] MEDS ORDERED: MAGNESIUM HYDROX 2400MG/30ML ORAL SUSPENSION 30 ML CUP PO PRN (14:10)
[2016-07-13] MEDS ORDERED: MAG HYDROX/AL HYDROX/SIMETH 30 ML UNIT-DOSE CUP PO PRN (14:10)
[2016-07-13] MEDS ORDERED: guaiFENesin/D-METHORPHAN HB 10 ML UNIT-DOSE CUPS PO PRN (14:10)
[2016-07-13] MEDS ORDERED: diphenhydrAMINE HCL 50 MG CAPSULE PO PRN (14:10)
[2016-07-13] MEDS ORDERED: P-EPHED 60MG/TRIPROLIDI 2.5MG TABLET PO PRN (14:10)
[2016-07-13] MEDS ORDERED: METHADONE HCL 10 MG TABLET (FOR DETOX USE ONLY) PO ONE ×2 (14:17→23:00)
[2016-07-13] MEDS: diazePAM 5 MG TABLET PO PRN ×2 (14:48→22:47)
[2016-07-13] MEDS: TAMSULOSIN HCL 0.4 MG CAP.ER.24H (FP) PO SCH (17:28)
[2016-07-13] MEDS: metFORMIN HCL 500 MG TABLET (FP) PO SCH (17:28)
[2016-07-13 18:22] LABS: URINE APPEARANCE CLEAR; URINE BILIRUBIN NEGATIVE (NEGATIVE); URINE BLOOD NEGATIVE (NEGATIVE); URINE COLOR YELLOW; URINE GLUCOSE (UA) NEGATIVE (NEGATIVE); URINE KETONE NEGATIVE (NEGATIVE); URINE LEUK ESTERASE NEGATIVE (NEGATIVE); URINE NITRITE NEGATIVE (NEGATIVE); URINE UROBILINOGEN 2.0 E.U/dl E.U./dl (0.2-1.0)
[2016-07-13 18:40] LABS: URINE PROTEIN 2+ (NEGATIVE)
[2016-07-13 19:09] LABS: URINE MUCUS RARE; URINE RBC 1 /hpf (0-3); URINE WBC 2 /hpf (3-5)
[2016-07-13] MEDS: THIAMINE HCL 100 MG TABLET (FP) PO SCH (22:44)
[2016-07-13] MEDS: MYCOPHENOLATE MOFETIL PO SCH (22:45)
[2016-07-13] MEDS: METOPROLOL TARTRATE 50 MG TABLET (FP) PO SCH (22:45)
[2016-07-13] MEDS: ASPIRIN 81 MG CHEWABLE TABLETS PO SCH (22:45)
[2016-07-13] MEDS: TACROLIMUS 5 MG PO SCH (22:46)
[2016-07-14] MEDS: diazePAM 5 MG TABLET PO PRN ×4 (05:42→23:08)
[2016-07-14] MEDS: metFORMIN HCL 500 MG TABLET (FP) PO SCH ×2 (07:03→16:30)
[2016-07-14] MEDS ORDERED: METHADONE HCL 10 MG TABLET (FOR DETOX USE ONLY) PO ONE (10:00)
[2016-07-14 10:08] LABS: MCH 26.6 pg (25.7-33.7); MCHC 32.9 g/dl (32.0-35.9); MEAN CELL VOLUME 80.8 fl (80-96); MEAN PLT VOLUME 10.2 fl (7.5-11.1); PLATELET COUNT 163 K/MM3 (134-434); RDW 14.2 % (11.9-15.9); WHITE BLOOD COUNT 3.7 K/mm3 (4.0-10.0)
--- NOTE | 2016-07-14 10:10 | CONSULT ---
[facility] Psychiatric Consult - Data Date of interview: 07/14/16 Admission source: [facility] Identifying data: This is 65 years old male with no psychiatric hospitalization history iontoxicated with: Heroin and Nicotine Substance Abuse History: - Smoking Cessation. Smoking history: Former smoker. Have you smoked in the past 12 months: No. Aproximately how many cigarettes per day: 0. If you are a former smoker, when did you quit?: 25 yrs ago. Cigars Per Day: 0. Hx Chewing Tobacco Use: No. Initiated information on smoking cessation: No. 'Breaking Loose' booklet given: 07/13/16. - Substance & Tx. History. Hx Alcohol Use: No. Hx Substance Use: Yes. Substance Use Type : Heroin. Hx Substance Use Treatment: Yes. - Substances Abused. Heroin. Route: Inhalation. Frequency: Daily. Amount used: 20 bags. Age of first use: 20. Date of Last Use: 07/12/16 Medical History: HTN, Hypertriglicerinemia, HepC+ Psychiatric History: Patoient reportsa history of deporession and anxiety, reports insomnia, reports taking prior to admission: Trazodone 150mg po qhs Physical/Sexual Abuse/Trauma History: Denies Additional Comment: Trazodone 150mg po qhs Mental Status Exam - Mental Status Exam Alert and Oriented to: Person Cognitive Function: Fair Patient Appearance: Unkempt Mood: Angry Affect: Flat Patient Behavior: Sedated Speech Pattern: Delayed Voice Loudness: Mildly Soft/Quiet Thought Process: Circumstantial Thought Disorder: Being Controlled Hallucinations: Denies Suicidal Ideation: Denies Homicidal Ideation: Denies Insight/Judgement: Fair Sleep: Difficulty falling asleep Appetite: Fair Muscle strength/Tone: Mild Hypotonicity Gait/Station: Shuffling Additional Comments: Trazodone 150mg po qhs Psychiatric Findings - Problem List ([place] 1, 2,3) (1) Opioid dependence with withdrawal Current Visit: Yes Status: Chronic (2) Substance induced mood disorder Current Visit: No Status: Acute (3) Nicotine dependence Current Visit: Yes Status: Acute - Initial Treatment Plan Initial Treatment Plan: Trazodone 150mg po qhs
[2016-07-14 10:22] LABS: ALBUMIN 4.4 g/dl (3.4-5.0); ALK PHOS 107 U/L (45-117); ANION GAP 13 (8-16); BILIRUBIN,TOTAL 0.3 mg/dL (0.2-1.0); CALCIUM 9.6 mg/dL (8.5-10.1); CO2 26 mmol/L (21-32); COCKROFT - GAULT 80.84; CREATININE 1.2 mg/dL (0.7-1.3); GLUCOSE,RANDOM 140 mg/dL (74-106); SGOT/AST 14 U/L (15-37); SGPT/ALT 14 U/L (12-78); TOT PROT 7.5 g/dl (6.4-8.2)
[2016-07-14] MEDS: METOPROLOL TARTRATE 50 MG TABLET (FP) PO SCH ×2 (10:33→22:30)
[2016-07-14] MEDS: MINOXIDIL 2.5 MG TABLET PO SCH (10:34)
[2016-07-14] MEDS: TACROLIMUS 5 MG PO SCH ×2 (10:34→23:09)
[2016-07-14] MEDS: MYCOPHENOLATE MOFETIL PO SCH ×2 (10:34→23:09)
[2016-07-14] MEDS: PRENATAL VITAMINS W/ FOLIC ACID TABLET (FP) PO SCH (10:34)
--- NOTE | 2016-07-14 10:51 | PN ---
S COWS - Scale Resting Pulse: 0= [place] 80 or Below Sweatin= Chills/Flushing Restless Observation: 3= Extraneous Movement Pupil Size: 2= Moderately Dilated Bone or Joint Aches: 4=Acute Joint/Muscle Pain Runny Nose/ Eye Tearin= Nasal Congestion GI Upset > 30mins: 1= Stomach Cramp Tremor Observation of Outstretched Hands: 1= Tremor [place], Not Seen Yawning Observation: 2= >3x During Session Anxiety or Irritability: 1=Feels Anxious/Irritable Goose Flesh Skin: 0=Smooth Skin COWS Score: 16 S Progress Note (SOAP) Subjective: MUSCLE CRAMPS,ANXIETY,SWEATS,INTERMITTENT SLEEP. Objective: 07/14/16 10:50 Vital Signs Temperature 97.7 F 07/14/16 09:27 Pulse Rate 70 07/14/16 09:27 Respiratory Rate 18 07/14/16 09:27 Blood Pressure 139/78 07/14/16 09:27 O2 Sat by Pulse Oximetry (%) Laboratory Last Values WBC 3.7 K/mm3 (4.0-10.0) L D 07/14/16 06:00 RBC 4.49 M/mm3 (4.00-5.60) 07/14/16 06:00 Hgb 11.9 GM/dL (11.7-16.9) D 07/14/16 06:00 Hct 36.3 % (35.4-49) 07/14/16 06:00 MCV 80.8 fl (80-96) 07/14/16 06:00 MCHC 32.9 g/dl (32.0-35.9) 07/14/16 06:00 RDW 14.2 % (11.9-15.9) 07/14/16 06:00 Plt Count 163 K/MM3 (134-434) D 07/14/16 06:00 MPV 10.2 fl (7.5-11.1) 07/14/16 06:00 POC Glucometer 118 UNITS (()) 07/14/16 05:43 Urine Color Yellow 07/13/16 14:00 Urine Appearance Clear 07/13/16 14:00 Urine pH 7.0 (5.0-8.0) 07/13/16 14:00 Ur Specific [place] 1.015 (1.005-1.025) 07/13/16 14:00 Urine Protein 2+ (NEGATIVE) H 07/13/16 14:00 Urine Glucose (UA) Negative (NEGATIVE) 07/13/16 14:00 Urine Ketones Negative (NEGATIVE) 07/13/16 14:00 Urine Blood Negative (NEGATIVE) 07/13/16 14:00 Urine Nitrite Negative (NEGATIVE) 07/13/16 14:00 Urine Bilirubin Negative (NEGATIVE) 07/13/16 14:00 Urine Urobilinogen 2.0 e.u/dl E.U./dl (0.2-1.0) 07/13/16 14:00 Ur Leukocyte Esterase Negative (NEGATIVE) 07/13/16 14:00 Urine RBC 1 /hpf (0-3) 07/13/16 14:00 Urine WBC 2 /hpf (3-5) 07/13/16 14:00 Urine Mucus Rare 07/13/16 14:00 Assessment: 07/14/16 10:50 WITHDRAWAL SX Plan: CONTINUE DETOX
--- NOTE | 2016-07-14 16:38 | EKG ---
Test Reason : Blood Pressure : / mmHG Vent. Rate : 050 BPM Atrial Rate : 050 BPM P-R Int : 178 ms QRS Dur : 082 ms QT Int : 498 ms P-R-T Axes : 026 036 184 degrees QTc Int : 454 ms SINUS BRADYCARDIA LEFT VENTRICULAR HYPERTROPHY WITH REPOLARIZATION ABNORMALITY ABNORMAL ECG WHEN COMPARED WITH ECG OF 09-MAR-2016 14:48, T WAVE INVERSION MORE EVIDENT IN INFERIOR LEADS Confirmed by JEAN-PAUL MADRIGAL MD ([id number]) on 07/14/2016 4:37:38 PM Referred By: Confirmed By:JEAN-PAUL MADRIGAL MD
[2016-07-14] MEDS: TAMSULOSIN HCL 0.4 MG CAP.ER.24H (FP) PO SCH (17:48)
[2016-07-14] MEDS: hydrOXYzine PAMOATE 50 MG CAPSULE (FP) PO PRN (17:51)
[2016-07-14] MEDS: THIAMINE HCL 100 MG TABLET (FP) PO SCH (23:07)
[2016-07-14] MEDS: traZODone HCL 50 MG TABLET (FP) PO SCH (23:08)
[2016-07-14] MEDS: CYCLOBENZAPRINE HCL 10 MG TABLET (FP) PO SCH (23:08)
[2016-07-14] MEDS: ASPIRIN 81 MG CHEWABLE TABLETS PO SCH (23:08)
[2016-07-15] MEDS: CYCLOBENZAPRINE HCL 10 MG TABLET (FP) PO SCH ×3 (05:32→22:39)
[2016-07-15] MEDS: diazePAM 5 MG TABLET PO PRN ×4 (05:32→22:38)
[2016-07-15] MEDS: metFORMIN HCL 500 MG TABLET (FP) PO SCH ×2 (06:59→17:27)
[2016-07-15] MEDS ORDERED: METHADONE HCL 5 MG TABLET (FOR DETOX USE ONLY) PO ONE (10:00)
[2016-07-15] MEDS: MINOXIDIL 2.5 MG TABLET PO SCH (10:20)
[2016-07-15] MEDS: MYCOPHENOLATE MOFETIL PO SCH ×2 (10:20→22:40)
[2016-07-15] MEDS: PRENATAL VITAMINS W/ FOLIC ACID TABLET (FP) PO SCH (10:20)
[2016-07-15] MEDS: TACROLIMUS 5 MG PO SCH ×2 (10:20→22:40)
[2016-07-15] MEDS: METOPROLOL TARTRATE 50 MG TABLET (FP) PO SCH ×2 (10:20→22:39)
--- NOTE | 2016-07-15 11:38 | PN ---
S COWS - Scale Resting Pulse: 0= [place] 80 or Below Sweatin= Chills/Flushing Restless Observation: 3= Extraneous Movement Pupil Size: 2= Moderately Dilated Bone or Joint Aches: 4=Acute Joint/Muscle Pain Runny Nose/ Eye Tearin= Nasal Congestion GI Upset > 30mins: 1= Stomach Cramp Tremor Observation of Outstretched Hands: 1= Tremor [place], Not Seen Yawning Observation: 1= 1-2x During Session Anxiety or Irritability: 2=Irritable/Anxious Goose Flesh Skin: 0=Smooth Skin COWS Score: 16 S Progress Note (SOAP) Subjective: ANXIETY,SWEATS,TREMORSYAWNING,RUNNY NOS,MUSCLE/STOMACH CRAMPS Objective: 07/15/16 11:37 Vital Signs Temperature 99.4 F 07/15/16 10:55 Pulse Rate 66 07/15/16 10:55 Respiratory Rate 20 07/15/16 10:55 Blood Pressure 150/87 07/15/16 10:55 O2 Sat by Pulse Oximetry (%) Laboratory Last Values WBC 3.7 K/mm3 (4.0-10.0) L D 07/14/16 06:00 RBC 4.49 M/mm3 (4.00-5.60) 07/14/16 06:00 Hgb 11.9 GM/dL (11.7-16.9) D 07/14/16 06:00 Hct 36.3 % (35.4-49) 07/14/16 06:00 MCV 80.8 fl (80-96) 07/14/16 06:00 MCHC 32.9 g/dl (32.0-35.9) 07/14/16 06:00 RDW 14.2 % (11.9-15.9) 07/14/16 06:00 Plt Count 163 K/MM3 (134-434) D 07/14/16 06:00 MPV 10.2 fl (7.5-11.1) 07/14/16 06:00 Sodium 138 mmol/L (136-145) 07/14/16 06:00 Potassium 4.3 mmol/L (3.5-5.1) 07/14/16 06:00 Chloride 99 mmol/L (98-107) 07/14/16 06:00 Carbon Dioxide 26 mmol/L (21-32) 07/14/16 06:00 Anion Gap 13 (8-16) 07/14/16 06:00 BUN 12 mg/dL (7-18) D 07/14/16 06:00 Creatinine 1.2 mg/dL (0.7-1.3) D 07/14/16 06:00 Creat Clearance w eGFR > 60 (>60) 07/14/16 06:00 POC Glucometer 120 UNITS (()) 07/15/16 05:34 Random Glucose 140 mg/dL (74-106) H D 07/14/16 06:00 Calcium 9.6 mg/dL (8.5-10.1) 07/14/16 06:00 Total Bilirubin 0.3 mg/dL (0.2-1.0) D 07/14/16 06:00 AST 14 U/L (15-37) L 07/14/16 06:00 ALT 14 U/L (12-78) D 07/14/16 06:00 Alkaline Phosphatase 107 U/L (45-117) 07/14/16 06:00 Total Protein 7.5 g/dl (6.4-8.2) 07/14/16 06:00 Albumin 4.4 g/dl (3.4-5.0) 07/14/16 06:00 Urine Color Yellow 07/13/16 14:00 Urine Appearance Clear 07/13/16 14:00 Urine pH 7.0 (5.0-8.0) 07/13/16 14:00 Ur Specific [place] 1.015 (1.005-1.025) 07/13/16 14:00 Urine Protein 2+ (NEGATIVE) H 07/13/16 14:00 Urine Glucose (UA) Negative (NEGATIVE) 07/13/16 14:00 Urine Ketones Negative (NEGATIVE) 07/13/16 14:00 Urine Blood Negative (NEGATIVE) 07/13/16 14:00 Urine Nitrite Negative (NEGATIVE) 07/13/16 14:00 Urine Bilirubin Negative (NEGATIVE) 07/13/16 14:00 Urine Urobilinogen 2.0 e.u/dl E.U./dl (0.2-1.0) 07/13/16 14:00 Ur Leukocyte Esterase Negative (NEGATIVE) 07/13/16 14:00 Urine RBC 1 /hpf (0-3) 07/13/16 14:00 Urine WBC 2 /hpf (3-5) 07/13/16 14:00 Urine Mucus Rare 07/13/16 14:00 RPR Titer Nonreactive (NONREACTIVE) 07/14/16 06:00 Assessment: 07/15/16 11:38 WITHDRAWAL SX Plan: CONTINUE DETOX
[2016-07-15] MEDS: TAMSULOSIN HCL 0.4 MG CAP.ER.24H (FP) PO SCH (17:27)
[2016-07-15] MEDS: ASPIRIN 81 MG CHEWABLE TABLETS PO SCH (22:38)
[2016-07-15] MEDS: THIAMINE HCL 100 MG TABLET (FP) PO SCH (22:38)
[2016-07-15] MEDS: traZODone HCL 50 MG TABLET (FP) PO SCH (22:39)
[2016-07-16] MEDS: CYCLOBENZAPRINE HCL 10 MG TABLET (FP) PO SCH ×3 (05:21→22:49)
[2016-07-16] MEDS: metFORMIN HCL 500 MG TABLET (FP) PO SCH ×2 (06:02→16:58)
[2016-07-16] MEDS ORDERED: METHADONE HCL 5 MG TABLET (FOR DETOX USE ONLY) PO ONE (10:00)
[2016-07-16] MEDS: TACROLIMUS 5 MG PO SCH ×2 (10:30→22:51)
[2016-07-16] MEDS: METOPROLOL TARTRATE 50 MG TABLET (FP) PO SCH ×2 (10:31→22:49)
[2016-07-16] MEDS: MYCOPHENOLATE MOFETIL PO SCH ×2 (10:31→22:51)
[2016-07-16] MEDS: PRENATAL VITAMINS W/ FOLIC ACID TABLET (FP) PO SCH (10:31)
[2016-07-16] MEDS: MINOXIDIL 2.5 MG TABLET PO SCH (10:32)
[2016-07-16] MEDS: TAMSULOSIN HCL 0.4 MG CAP.ER.24H (FP) PO SCH (16:58)
[2016-07-16] MEDS: hydrOXYzine PAMOATE 50 MG CAPSULE (FP) PO PRN (16:59)
[2016-07-16] MEDS: LISINOPRIL 10 MG TABLET (FP) PO SCH (18:31)
--- NOTE | 2016-07-16 18:55 | PN ---
[facility] Progress Note (SOAP) Subjective: Body Aches, Fatigue, Stomach Cramping, Tremors. Objective: PT. A & O X 3. NO ACUTE DISTRESS. PATIENT DENIES CHEST PAIN. 07/16/16 18:51 Vital Signs Temperature 98.6 F 07/16/16 17:41 Pulse Rate 67 07/16/16 17:41 Respiratory Rate 18 07/16/16 17:41 Blood Pressure 141/83 07/16/16 17:41 O2 Sat by Pulse Oximetry (%) Laboratory Tests 07/13/16 07/13/16 07/13/16 12:27 14:00 16:29 WBC RBC Hgb Hct MCV MCHC RDW Plt Count MPV Sodium Potassium Chloride Carbon Dioxide Anion Gap BUN Creatinine Creat Clearance w eGFR POC Glucometer 145 120 Random Glucose Calcium Total Bilirubin AST ALT Alkaline Phosphatase Total Protein Albumin Urine Color Yellow Urine Appearance Clear Urine pH 7.0 Ur Specific [place] 1.015 Urine Protein 2+ H Urine Glucose (UA) Negative Urine Ketones Negative Urine Blood Negative Urine Nitrite Negative Urine Bilirubin Negative Urine Urobilinogen 2.0 e.u/dl Ur Leukocyte Esterase Negative Urine RBC 1 Urine WBC 2 Urine Mucus Rare RPR Titer 07/14/16 07/14/16 07/14/16 05:43 06:00 06:00 WBC 3.7 L D RBC 4.49 Hgb 11.9 D Hct 36.3 MCV 80.8 MCHC 32.9 RDW 14.2 Plt Count 163 D MPV 10.2 Sodium 138 Potassium 4.3 Chloride 99 Carbon Dioxide 26 Anion Gap 13 BUN 12 D Creatinine 1.2 D Creat Clearance w eGFR > 60 POC Glucometer 118 Random Glucose 140 H D Calcium 9.6 Total Bilirubin 0.3 D AST 14 L ALT 14 D Alkaline Phosphatase 107 Total Protein 7.5 Albumin 4.4 Urine Color Urine Appearance Urine pH Ur Specific [place] Urine Protein Urine Glucose (UA) Urine Ketones Urine Blood Urine Nitrite Urine Bilirubin Urine Urobilinogen Ur Leukocyte Esterase Urine RBC Urine WBC Urine Mucus RPR Titer 07/14/16 07/14/16 07/15/16 06:00 16:18 05:34 WBC RBC Hgb Hct MCV MCHC RDW Plt Count MPV Sodium Potassium Chloride Carbon Dioxide Anion Gap BUN Creatinine Creat Clearance w eGFR POC Glucometer 121 120 Random Glucose Calcium Total Bilirubin AST ALT Alkaline Phosphatase Total Protein Albumin Urine Color Urine Appearance Urine pH Ur Specific [place] Urine Protein Urine Glucose (UA) Urine Ketones Urine Blood Urine Nitrite Urine Bilirubin Urine Urobilinogen Ur Leukocyte Esterase Urine RBC Urine WBC Urine Mucus RPR Titer Nonreactive 07/15/16 07/16/16 07/16/16 16:15 05:20 16:26 WBC RBC Hgb Hct MCV MCHC RDW Plt Count MPV Sodium Potassium Chloride Carbon Dioxide Anion Gap BUN Creatinine Creat Clearance w eGFR POC Glucometer 102 109 108 Random Glucose Calcium Total Bilirubin AST ALT Alkaline Phosphatase Total Protein Albumin Urine Color Urine Appearance Urine pH Ur Specific [place] Urine Protein Urine Glucose (UA) Urine Ketones Urine Blood Urine Nitrite Urine Bilirubin Urine Urobilinogen Ur Leukocyte Esterase Urine RBC Urine WBC Urine Mucus RPR Titer LABS NOTED. 07/16/16 18:54 Assessment: 07/16/16 18:52 WITHDRAWAL SYMPTOMS. Plan: CONTINUE DETOX.
[2016-07-16] MEDS: ASPIRIN 81 MG CHEWABLE TABLETS PO SCH (22:48)
[2016-07-16] MEDS: THIAMINE HCL 100 MG TABLET (FP) PO SCH (22:49)
[2016-07-16] MEDS: traZODone HCL 50 MG TABLET (FP) PO SCH (22:51)
[2016-07-17] MEDS: hydrOXYzine PAMOATE 50 MG CAPSULE (FP) PO PRN (05:32)
[2016-07-17] MEDS: CYCLOBENZAPRINE HCL 10 MG TABLET (FP) PO SCH ×3 (05:32→22:30)
[2016-07-17] MEDS: metFORMIN HCL 500 MG TABLET (FP) PO SCH ×2 (07:38→17:15)
[2016-07-17] MEDS ORDERED: METHADONE HCL 10 MG TABLET (FOR DETOX USE ONLY) PO ONE (10:00)
[2016-07-17] MEDS: MYCOPHENOLATE MOFETIL PO SCH ×2 (10:09→22:30)
[2016-07-17] MEDS: TACROLIMUS 5 MG PO SCH ×2 (10:09→22:30)
[2016-07-17] MEDS: LISINOPRIL 10 MG TABLET (FP) PO SCH (10:09)
[2016-07-17] MEDS: PRENATAL VITAMINS W/ FOLIC ACID TABLET (FP) PO SCH (10:09)
[2016-07-17] MEDS: MINOXIDIL 2.5 MG TABLET PO SCH (10:09)
[2016-07-17] MEDS: METOPROLOL TARTRATE 50 MG TABLET (FP) PO SCH ×2 (10:43→22:30)
--- NOTE | 2016-07-17 15:39 | PN ---
[facility] Progress Note (SOAP) Subjective: Tremor, chills, diarrhea x 2, back pain, weakness, interrupted sleep Objective: 07/17/16 15:35 Last Vital Signs Temp Pulse Resp BP Pulse Ox 96.9 F L 71 18 119/77 07/17/16 14:01 07/17/16 14:01 07/17/16 14:01 07/17/16 14:01 Laboratory Tests 07/13/16 07/13/16 07/13/16 12:27 14:00 16:29 WBC RBC Hgb Hct MCV MCHC RDW Plt Count MPV Sodium Potassium Chloride Carbon Dioxide Anion Gap BUN Creatinine Creat Clearance w eGFR POC Glucometer 145 120 Random Glucose Calcium Total Bilirubin AST ALT Alkaline Phosphatase Total Protein Albumin Urine Color Yellow Urine Appearance Clear Urine pH 7.0 Ur Specific [place] 1.015 Urine Protein 2+ H Urine Glucose (UA) Negative Urine Ketones Negative Urine Blood Negative Urine Nitrite Negative Urine Bilirubin Negative Urine Urobilinogen 2.0 e.u/dl Ur Leukocyte Esterase Negative Urine RBC 1 Urine WBC 2 Urine Mucus Rare RPR Titer 07/14/16 07/14/16 07/14/16 05:43 06:00 06:00 WBC 3.7 L D RBC 4.49 Hgb 11.9 D Hct 36.3 MCV 80.8 MCHC 32.9 RDW 14.2 Plt Count 163 D MPV 10.2 Sodium 138 Potassium 4.3 Chloride 99 Carbon Dioxide 26 Anion Gap 13 BUN 12 D Creatinine 1.2 D Creat Clearance w eGFR > 60 POC Glucometer 118 Random Glucose 140 H D Calcium 9.6 Total Bilirubin 0.3 D AST 14 L ALT 14 D Alkaline Phosphatase 107 Total Protein 7.5 Albumin 4.4 Urine Color Urine Appearance Urine pH Ur Specific [place] Urine Protein Urine Glucose (UA) Urine Ketones Urine Blood Urine Nitrite Urine Bilirubin Urine Urobilinogen Ur Leukocyte Esterase Urine RBC Urine WBC Urine Mucus RPR Titer 07/14/16 07/14/16 07/15/16 06:00 16:18 05:34 WBC RBC Hgb Hct MCV MCHC RDW Plt Count MPV Sodium Potassium Chloride Carbon Dioxide Anion Gap BUN Creatinine Creat Clearance w eGFR POC Glucometer 121 120 Random Glucose Calcium Total Bilirubin AST ALT Alkaline Phosphatase Total Protein Albumin Urine Color Urine Appearance Urine pH Ur Specific [place] Urine Protein Urine Glucose (UA) Urine Ketones Urine Blood Urine Nitrite Urine Bilirubin Urine Urobilinogen Ur Leukocyte Esterase Urine RBC Urine WBC Urine Mucus RPR Titer Nonreactive 07/15/16 07/16/16 07/16/16 16:15 05:20 16:26 WBC RBC Hgb Hct MCV MCHC RDW Plt Count MPV Sodium Potassium Chloride Carbon Dioxide Anion Gap BUN Creatinine Creat Clearance w eGFR POC Glucometer 102 109 108 Random Glucose Calcium Total Bilirubin AST ALT Alkaline Phosphatase Total Protein Albumin Urine Color Urine Appearance Urine pH Ur Specific [place] Urine Protein Urine Glucose (UA) Urine Ketones Urine Blood Urine Nitrite Urine Bilirubin Urine Urobilinogen Ur Leukocyte Esterase Urine RBC Urine WBC Urine Mucus RPR Titer 07/17/16 05:33 WBC RBC Hgb Hct MCV MCHC RDW Plt Count MPV Sodium Potassium Chloride Carbon Dioxide Anion Gap BUN Creatinine Creat Clearance w eGFR POC Glucometer 129 Random Glucose Calcium Total Bilirubin AST ALT Alkaline Phosphatase Total Protein Albumin Urine Color Urine Appearance Urine pH Ur Specific [place] Urine Protein Urine Glucose (UA) Urine Ketones Urine Blood Urine Nitrite Urine Bilirubin Urine Urobilinogen Ur Leukocyte Esterase Urine RBC Urine WBC Urine Mucus RPR Titer Labs noted: UA 2+ protein Assessment: 07/17/16 15:37 Withdrawal symptoms Noted with proteinuria (patient reports being a renal transplant recipient 31/2 years ago) Plan: Continue detox Proteinuria: encouraged to drink lots of water (water pitcher ordered), repeat UA
[2016-07-17] MEDS: TAMSULOSIN HCL 0.4 MG CAP.ER.24H (FP) PO SCH (17:15)
[2016-07-17 18:03] LABS: URINE APPEARANCE CLEAR; URINE BILIRUBIN NEGATIVE (NEGATIVE); URINE BLOOD NEGATIVE (NEGATIVE); URINE COLOR YELLOW; URINE GLUCOSE (UA) NEGATIVE (NEGATIVE); URINE KETONE NEGATIVE (NEGATIVE); URINE LEUK ESTERASE NEGATIVE (NEGATIVE); URINE NITRITE NEGATIVE (NEGATIVE); URINE UROBILINOGEN NEGATIVE E.U./dl (0.2-1.0)
[2016-07-17 18:05] LABS: URINE PROTEIN 2+ (NEGATIVE)
[2016-07-17 18:07] LABS: URINE HYALINE CAST 1 /lpf; URINE MUCUS RARE; URINE RBC <1 /hpf (0-3)
[2016-07-17] MEDS: ASPIRIN 81 MG CHEWABLE TABLETS PO SCH (22:30)
[2016-07-17] MEDS: THIAMINE HCL 100 MG TABLET (FP) PO SCH (22:30)
[2016-07-17] MEDS: traZODone HCL 50 MG TABLET (FP) PO SCH (22:32)
[2016-07-18] MEDS: CYCLOBENZAPRINE HCL 10 MG TABLET (FP) PO SCH (05:31)
[2016-07-18] MEDS ORDERED: METHADONE HCL 5 MG TABLET (FOR DETOX USE ONLY) PO ONE (06:00)
[2016-07-18] MEDS: metFORMIN HCL 500 MG TABLET (FP) PO SCH (07:33)
--- NOTE | 2016-07-18 09:02 | DS ---
[facility] Detox Discharge Summary Admission Date: 07/13/16 Discharge Date: 07/18/16 - History Present History: Opioid Dependence Pertinent Past History: Type II DM HTN Hep C Hypertriglyceridemia - Physical Exam Results Vital Signs: Vital Signs Temperature 97.1 F L 07/18/16 06:18 Pulse Rate 67 07/18/16 06:18 Respiratory Rate 18 07/18/16 06:18 Blood Pressure 149/92 07/18/16 06:18 O2 Sat by Pulse Oximetry (%) Pertinent Admission Physical Exam Findings: Withdrawal sx. Laboratory Last Values WBC 3.7 K/mm3 (4.0-10.0) L D 07/14/16 06:00 RBC 4.49 M/mm3 (4.00-5.60) 07/14/16 06:00 Hgb 11.9 GM/dL (11.7-16.9) D 07/14/16 06:00 Hct 36.3 % (35.4-49) 07/14/16 06:00 MCV 80.8 fl (80-96) 07/14/16 06:00 MCHC 32.9 g/dl (32.0-35.9) 07/14/16 06:00 RDW 14.2 % (11.9-15.9) 07/14/16 06:00 Plt Count 163 K/MM3 (134-434) D 07/14/16 06:00 MPV 10.2 fl (7.5-11.1) 07/14/16 06:00 Sodium 138 mmol/L (136-145) 07/14/16 06:00 Potassium 4.3 mmol/L (3.5-5.1) 07/14/16 06:00 Chloride 99 mmol/L (98-107) 07/14/16 06:00 Carbon Dioxide 26 mmol/L (21-32) 07/14/16 06:00 Anion Gap 13 (8-16) 07/14/16 06:00 BUN 12 mg/dL (7-18) D 07/14/16 06:00 Creatinine 1.2 mg/dL (0.7-1.3) D 07/14/16 06:00 Creat Clearance w eGFR > 60 (>60) 07/14/16 06:00 POC Glucometer 107 UNITS (()) 07/18/16 05:33 Random Glucose 140 mg/dL (74-106) H D 07/14/16 06:00 Calcium 9.6 mg/dL (8.5-10.1) 07/14/16 06:00 Total Bilirubin 0.3 mg/dL (0.2-1.0) D 07/14/16 06:00 AST 14 U/L (15-37) L 07/14/16 06:00 ALT 14 U/L (12-78) D 07/14/16 06:00 Alkaline Phosphatase 107 U/L (45-117) 07/14/16 06:00 Total Protein 7.5 g/dl (6.4-8.2) 07/14/16 06:00 Albumin 4.4 g/dl (3.4-5.0) 07/14/16 06:00 Urine Color Yellow 07/17/16 13:56 Urine Appearance Clear 07/17/16 13:56 Urine pH 7.0 (5.0-8.0) 07/17/16 13:56 Ur Specific [place] 1.015 (1.005-1.025) 07/17/16 13:56 Urine Protein 2+ (NEGATIVE) H 07/17/16 13:56 Urine Glucose (UA) Negative (NEGATIVE) 07/17/16 13:56 Urine Ketones Negative (NEGATIVE) 07/17/16 13:56 Urine Blood Negative (NEGATIVE) 07/17/16 13:56 Urine Nitrite Negative (NEGATIVE) 07/17/16 13:56 Urine Bilirubin Negative (NEGATIVE) 07/17/16 13:56 Urine Urobilinogen Negative E.U./dl (0.2-1.0) 07/17/16 13:56 Ur Leukocyte Esterase Negative (NEGATIVE) 07/17/16 13:56 Urine RBC <1 /hpf (0-3) 07/17/16 13:56 Urine WBC None /hpf (3-5) 07/17/16 13:56 Amorphous Urates Few /hpf (NONE SEEN) 07/17/16 13:56 Hyaline Casts 1 /lpf 07/17/16 13:56 Urine Mucus Rare 07/17/16 13:56 RPR Titer Nonreactive (NONREACTIVE) 07/14/16 06:00 Labs noted - Treatment Hospital Course: Detox Protocol Followed, Detoxed Safely, Responded well, Discharged Condition Good, Rehab Referral Accepted Patient has Accepted a Rehab Referral to: [facility] - Medication Discharge Medications: Ambulatory Orders Clonidine HCl [Catapres -] 0.3 mg PO BID 03/09/16 Minoxidil [Loniten -] 5 mg PO DAILY 03/09/16 Potassium Chloride [K-Dur -] 20 meq PO BID 03/09/16 Tacrolimus [Prograf] 5 mg PO BID 03/09/16 Docusate Sodium [Col-Rite] 50 mg PO BID #60 capsule 03/30/16 Metformin HCl [Glucophage -] 500 mg PO BIDAC #60 tablet 03/30/16 Metoprolol Tartrate [Lopressor -] 100 mg PO BID #60 tablet 03/30/16 Mycophenolate Mofetil [Cellcept -] 500 mg PO BID tablet 03/30/16 Trazodone HCl [Desyrel -] 150 mg PO HS #30 tablet 03/30/16 Aspirin [ASA -] 81 mg PO HS 07/13/16 Tamsulosin HCl [Flomax -] 0.4 mg PO HS 07/13/16 Trazodone HCl [Desyrel -] 150 mg PO HS #30 tablet 07/14/16 - Diagnosis (1) Nicotine dependence Current Visit: Yes Status: Acute (2) HTN (hypertension) Current Visit: Yes Status: Chronic Qualifiers: Hypertension type: essential hypertension Qualified Code(s): I10 - Essential (primary) hypertension (3) Hypertriglyceridemia Current Visit: Yes Status: Chronic (4) Opioid dependence with withdrawal Current Visit: Yes Status: Chronic (5) Substance induced mood disorder Current Visit: No Status: Acute (6) Hepatitis C Current Visit: No Status: Chronic Qualifiers: Viral hepatitis chronicity: chronic Hepatic coma status: without hepatic coma Qualified Code(s): B18.2 - Chronic viral hepatitis C (7) Type II diabetes mellitus Current Visit: Yes Status: Acute Qualifiers: Diabetes mellitus complication status: without complication Diabetes mellitus shelter insulin use: without regional intermodal truck driver use Qualified Code(s): E11.9 - Type 2 diabetes mellitus without complications - AMA Did Patient Leave Against Medical Advice: No
[2016-07-18 10:01] VITALS: BP 148/90; PULSE 82; TEMP 96.9
[2016-07-18] MEDS: LISINOPRIL 10 MG TABLET (FP) PO SCH (10:23)
[2016-07-18] MEDS: PRENATAL VITAMINS W/ FOLIC ACID TABLET (FP) PO SCH (10:23)
[2016-07-18] MEDS: MINOXIDIL 2.5 MG TABLET PO SCH (10:24)
[2016-07-18] MEDS: TACROLIMUS 5 MG PO SCH (10:24)
[2016-07-18] MEDS: MYCOPHENOLATE MOFETIL PO SCH (10:24)
[2016-07-18] MEDS: METOPROLOL TARTRATE 50 MG TABLET (FP) PO SCH (11:38)
== END 2016-07-18 11:44 | disposition other institution (70) | DRG 897 ==
LOC: YASAS 10:42 → Y3N 12:48
PROVIDERS: ADMIT Internal Medicine; ATTEND Internal Medicine
PROC: HZ2ZZZZ Detoxification Services for Substance Abuse Treatment (ICD-10-PCS; principal; 2016-07-18)
DX: F11.23 Opioid dependence with withdrawal (principal); F17.210 Nicotine dependence, cigarettes, uncomplicated; F19.24 Other psychoactive substance dependence with psychoactive substance-induced mood disorder; B18.2 Chronic viral hepatitis C; I10 Essential (primary) hypertension; E11.9 Type 2 diabetes mellitus without complications; Z79.84 Long term (current) use of oral hypoglycemic drugs; E78.1 Pure hyperglyceridemia
CPT/HCPCS: 36415; 80053; 81003; 81015; 85027; 86593; 93005; 93010

== ENCOUNTER 2016-07-18 11:48 | Inpatient (IN) | payer BC, OTHER ==
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
[2016-07-18] MEDS ORDERED: guaiFENesin/D-METHORPHAN HB 10 ML UNIT-DOSE CUPS PO PRN (15:07)
[2016-07-18] MEDS ORDERED: MAGNESIUM CITRATE 300 ML BOTTLE PO PRN (15:07)
[2016-07-18] MEDS ORDERED: MAGNESIUM HYDROX 2400MG/30ML ORAL SUSPENSION 30 ML CUP PO PRN (15:07)
[2016-07-18] MEDS ORDERED: IBUPROFEN 400 MG TABLET (FP) PO PRN (15:07)
[2016-07-18] MEDS ORDERED: MENTHOL/PHENOL 1 EACH UD MM PRN (15:07)
[2016-07-18] MEDS ORDERED: ACETAMINOPHEN 325 MG TABLET (FP) PO PRN (15:07)
[2016-07-18] MEDS ORDERED: LOPERAMIDE HCL 2 MG CAPSULE PO PRN (15:07)
[2016-07-18] MEDS ORDERED: P-EPHED 60MG/TRIPROLIDI 2.5MG TABLET PO PRN (15:07)
[2016-07-18] MEDS ORDERED: MAG HYDROX/AL HYDROX/SIMETH 30 ML UNIT-DOSE CUP PO PRN (15:07)
--- NOTE | 2016-07-18 16:26 | HP ---
[facility] Rehab Assess/Revision - Admission History Admitted to Rehab from: [facility] Date of Admission to Rehab: 07/18/16 - Findings Detox History & Physical reviewed: Yes Concur with findings: Yes Comments/Additional Findings: transferred from detox to rehab admission as per protocol
[2016-07-18] MEDS: metFORMIN HCL 500 MG TABLET (FP) PO SCH (16:51)
[2016-07-18] MEDS: ASPIRIN 81 MG CHEWABLE TABLETS PO SCH (21:04)
[2016-07-18] MEDS: METOPROLOL TARTRATE 50 MG TABLET (FP) PO SCH (21:04)
[2016-07-18] MEDS: THIAMINE HCL 100 MG TABLET (FP) PO SCH (21:04)
[2016-07-18] MEDS: TAMSULOSIN HCL 0.4 MG CAP.ER.24H (FP) PO SCH (21:04)
[2016-07-18] MEDS: MYCOPHENOLATE MOFETIL PO SCH (21:05)
[2016-07-18] MEDS: TACROLIMUS 5 MG PO SCH (21:05)
[2016-07-19] MEDS: metFORMIN HCL 500 MG TABLET (FP) PO SCH ×2 (07:23→18:09)
[2016-07-19] MEDS: PRENATAL VITAMINS W/ FOLIC ACID TABLET (FP) PO SCH (09:36)
[2016-07-19] MEDS: TACROLIMUS 5 MG PO SCH ×2 (09:37→21:46)
[2016-07-19] MEDS: METOPROLOL TARTRATE 50 MG TABLET (FP) PO SCH ×2 (09:37→21:45)
[2016-07-19] MEDS: MINOXIDIL 2.5 MG TABLET PO SCH (09:38)
[2016-07-19] MEDS: MYCOPHENOLATE MOFETIL PO SCH ×2 (09:40→21:46)
[2016-07-19] MEDS ORDERED: PT OWN MED DRAWER 7, Y5N ONE ×2 (09:41→21:47)
[2016-07-19] MEDS: THIAMINE HCL 100 MG TABLET (FP) PO SCH (21:45)
[2016-07-19] MEDS: TAMSULOSIN HCL 0.4 MG CAP.ER.24H (FP) PO SCH (21:45)
[2016-07-19] MEDS: ASPIRIN 81 MG CHEWABLE TABLETS PO SCH (21:47)
[2016-07-20] MEDS: metFORMIN HCL 500 MG TABLET (FP) PO SCH ×2 (07:03→16:52)
[2016-07-20] MEDS: MYCOPHENOLATE MOFETIL PO SCH ×2 (09:47→21:54)
[2016-07-20] MEDS: PRENATAL VITAMINS W/ FOLIC ACID TABLET (FP) PO SCH (09:47)
[2016-07-20] MEDS: MINOXIDIL 2.5 MG TABLET PO SCH (09:47)
[2016-07-20] MEDS: METOPROLOL TARTRATE 50 MG TABLET (FP) PO SCH ×2 (09:48→21:53)
[2016-07-20] MEDS: TACROLIMUS 5 MG PO SCH ×2 (09:48→21:54)
[2016-07-20] MEDS: TAMSULOSIN HCL 0.4 MG CAP.ER.24H (FP) PO SCH (21:53)
[2016-07-20] MEDS: ASPIRIN 81 MG CHEWABLE TABLETS PO SCH (21:53)
[2016-07-20] MEDS: THIAMINE HCL 100 MG TABLET (FP) PO SCH (21:54)
[2016-07-20] MEDS: diphenhydrAMINE HCL 50 MG CAPSULE PO PRN ×2 (21:55→23:59)
[2016-07-21] MEDS: metFORMIN HCL 500 MG TABLET (FP) PO SCH ×2 (07:02→16:42)
[2016-07-21] MEDS: TACROLIMUS 5 MG PO SCH ×2 (09:53→21:09)
[2016-07-21] MEDS: MYCOPHENOLATE MOFETIL PO SCH ×2 (09:53→21:09)
[2016-07-21] MEDS: MINOXIDIL 2.5 MG TABLET PO SCH (09:53)
[2016-07-21] MEDS: METOPROLOL TARTRATE 50 MG TABLET (FP) PO SCH ×2 (09:53→21:09)
[2016-07-21] MEDS: PRENATAL VITAMINS W/ FOLIC ACID TABLET (FP) PO SCH (09:53)
[2016-07-21] MEDS: ASPIRIN 81 MG CHEWABLE TABLETS PO SCH (21:08)
[2016-07-21] MEDS: THIAMINE HCL 100 MG TABLET (FP) PO SCH (21:08)
[2016-07-21] MEDS: TAMSULOSIN HCL 0.4 MG CAP.ER.24H (FP) PO SCH (21:09)
[2016-07-21] MEDS: diphenhydrAMINE HCL 50 MG CAPSULE PO PRN (21:10)
[2016-07-22] MEDS: metFORMIN HCL 500 MG TABLET (FP) PO SCH ×2 (07:15→16:51)
[2016-07-22] MEDS: MINOXIDIL 2.5 MG TABLET PO SCH (09:40)
[2016-07-22] MEDS: METOPROLOL TARTRATE 50 MG TABLET (FP) PO SCH ×2 (09:40→21:39)
[2016-07-22] MEDS: PRENATAL VITAMINS W/ FOLIC ACID TABLET (FP) PO SCH (09:40)
[2016-07-22] MEDS: MYCOPHENOLATE MOFETIL PO SCH ×2 (09:40→21:40)
[2016-07-22] MEDS: TACROLIMUS 5 MG PO SCH ×2 (09:40→21:40)
[2016-07-22] MEDS: THIAMINE HCL 100 MG TABLET (FP) PO SCH (21:39)
[2016-07-22] MEDS: diphenhydrAMINE HCL 50 MG CAPSULE PO PRN (21:40)
[2016-07-22] MEDS: ASPIRIN 81 MG CHEWABLE TABLETS PO SCH (21:40)
[2016-07-22] MEDS: TAMSULOSIN HCL 0.4 MG CAP.ER.24H (FP) PO SCH (21:40)
[2016-07-23] MEDS: metFORMIN HCL 500 MG TABLET (FP) PO SCH ×2 (07:17→16:55)
[2016-07-23] MEDS: TACROLIMUS 5 MG PO SCH ×2 (10:04→21:11)
[2016-07-23] MEDS: MINOXIDIL 2.5 MG TABLET PO SCH (10:04)
[2016-07-23] MEDS: METOPROLOL TARTRATE 50 MG TABLET (FP) PO SCH ×2 (10:04→21:10)
[2016-07-23] MEDS: MYCOPHENOLATE MOFETIL PO SCH ×2 (10:04→21:11)
[2016-07-23] MEDS: PRENATAL VITAMINS W/ FOLIC ACID TABLET (FP) PO SCH (10:04)
[2016-07-23] MEDS: diphenhydrAMINE HCL 50 MG CAPSULE PO PRN (21:10)
[2016-07-23] MEDS: TAMSULOSIN HCL 0.4 MG CAP.ER.24H (FP) PO SCH (21:10)
[2016-07-23] MEDS: THIAMINE HCL 100 MG TABLET (FP) PO SCH (21:10)
[2016-07-23] MEDS: ASPIRIN 81 MG CHEWABLE TABLETS PO SCH (21:10)
[2016-07-24] MEDS: metFORMIN HCL 500 MG TABLET (FP) PO SCH ×2 (07:02→16:46)
[2016-07-24] MEDS: PRENATAL VITAMINS W/ FOLIC ACID TABLET (FP) PO SCH (09:49)
[2016-07-24] MEDS: MINOXIDIL 2.5 MG TABLET PO SCH (09:49)
[2016-07-24] MEDS: METOPROLOL TARTRATE 50 MG TABLET (FP) PO SCH ×2 (09:49→21:20)
[2016-07-24] MEDS: MYCOPHENOLATE MOFETIL PO SCH ×2 (09:50→21:19)
[2016-07-24] MEDS: TACROLIMUS 5 MG PO SCH ×2 (09:50→21:19)
[2016-07-24] MEDS: ASPIRIN 81 MG CHEWABLE TABLETS PO SCH (21:20)
[2016-07-24] MEDS: THIAMINE HCL 100 MG TABLET (FP) PO SCH (21:20)
[2016-07-24] MEDS: diphenhydrAMINE HCL 50 MG CAPSULE PO PRN (21:20)
[2016-07-24] MEDS: TAMSULOSIN HCL 0.4 MG CAP.ER.24H (FP) PO SCH (21:20)
[2016-07-25] MEDS: metFORMIN HCL 500 MG TABLET (FP) PO SCH ×2 (06:18→16:49)
[2016-07-25] MEDS: MINOXIDIL 2.5 MG TABLET PO SCH (10:10)
[2016-07-25] MEDS: TACROLIMUS 5 MG PO SCH ×2 (10:10→21:05)
[2016-07-25] MEDS: MYCOPHENOLATE MOFETIL PO SCH ×2 (10:10→21:05)
[2016-07-25] MEDS: METOPROLOL TARTRATE 50 MG TABLET (FP) PO SCH ×2 (10:11→21:04)
[2016-07-25] MEDS: PRENATAL VITAMINS W/ FOLIC ACID TABLET (FP) PO SCH (10:11)
[2016-07-25] MEDS: hydrOXYzine PAMOATE 50 MG CAPSULE (FP) PO PRN (16:50)
[2016-07-25] MEDS: diphenhydrAMINE HCL 50 MG CAPSULE PO PRN (21:04)
[2016-07-25] MEDS: ASPIRIN 81 MG CHEWABLE TABLETS PO SCH (21:04)
[2016-07-25] MEDS: THIAMINE HCL 100 MG TABLET (FP) PO SCH (21:04)
[2016-07-25] MEDS: TAMSULOSIN HCL 0.4 MG CAP.ER.24H (FP) PO SCH (21:04)
[2016-07-26] MEDS: metFORMIN HCL 500 MG TABLET (FP) PO SCH ×2 (07:07→16:21)
[2016-07-26] MEDS: MINOXIDIL 2.5 MG TABLET PO SCH (09:44)
[2016-07-26] MEDS: TACROLIMUS 5 MG PO SCH ×2 (09:44→21:28)
[2016-07-26] MEDS: MYCOPHENOLATE MOFETIL PO SCH ×2 (09:44→21:28)
[2016-07-26] MEDS: PRENATAL VITAMINS W/ FOLIC ACID TABLET (FP) PO SCH (09:44)
[2016-07-26] MEDS: METOPROLOL TARTRATE 50 MG TABLET (FP) PO SCH ×2 (09:45→21:28)
--- NOTE | 2016-07-26 17:59 | PN ---
Psychiatric Progress Note Vital Signs: Vital Signs Period Temp Pulse Resp BP Sys/Gaona Pulse Ox Last 24 Hr 97.7 F 73-87 18-18 137-141/74-87 Date of Session: 07/26/16 Chief Complaint:: " I want something to help stop my craving for heroin" HPI: Patient addressing Opoid Dependence comorbid with Nicotine Dependence and Substance-Induced Mood Disorder ROS: HTN, Hyperlipidemia, Hep C, type 2 DM Current Medications: Active Medications Generic Name Dose Route Start Last Admin Trade Name Freq PRN Reason Stop Dose Admin Acetaminophen 650 mg 07/18/16 15:07 Tylenol - PO Q4H PRN FEVER OR PAIN Al Hydroxide/Mg Hydroxide 30 ml 07/18/16 15:07 Mylanta Oral Suspension - PO Q6H PRN DYSPEPSIA Aspirin 81 mg 07/18/16 22:00 07/25/16 21:04 Asa - PO 81 mg HS NAYELI Administration Diphenhydramine HCl 50 mg 07/18/16 15:07 07/25/16 21:04 Benadryl - PO 50 mg HSMR1 PRN Administration FOR ITCHING Eucalyptus/Menthol/Phenol/Sorbitol 1 each 07/18/16 15:07 Cepastat Lozenge - MM Q4H PRN SORE THROAT Guaifenesin 10 ml 07/18/16 15:07 Robitussin Dm - PO Q6H PRN COUGH Hydroxyzine Pamoate 50 mg 07/18/16 15:07 07/25/16 16:50 Vistaril - PO 50 mg Q4H PRN Administration AGITATION Ibuprofen 400 mg 07/18/16 15:07 Motrin - PO Q6H PRN PAIN Loperamide HCl 4 mg 07/18/16 15:07 Imodium - PO Q6H PRN DIARRHEA Magnesium Hydroxide 30 ml 07/18/16 15:07 Milk Of Magnesia - PO DAILY PRN CONSTIPATION Metformin HCl 500 mg 07/18/16 16:30 07/26/16 16:21 Glucophage - PO 500 mg BIDAC NAYELI Administration Metoprolol Tartrate 100 mg 07/18/16 22:00 07/26/16 09:45 Lopressor - PO 100 mg BID NAYELI Administration Minoxidil 5 mg 07/19/16 10:00 07/26/16 09:44 Lonitin - PO 5 mg DAILY NAYELI Administration Naltrexone HCl 50 mg 07/27/16 10:00 Revia - PO DAILY NAYELI Non-Formulary Medication 500 mg 07/18/16 22:00 07/26/16 09:44 Mycophenolate Mofetil [Cellcept -] PO 500 mg BID NAYELI Administration Non-Formulary Medication 5 mg 07/18/16 22:00 07/26/16 09:44 Tacrolimus [Prograf] PO 5 mg BID NAYELI Administration Multivit/Folic Acid/Iron 1 tab 07/19/16 10:00 07/26/16 09:44 Vitamins (Sjr) - PO 1 tab DAILY NAYELI Administration Pseudoephedrine/Triprolidine 1 combo 07/18/16 15:07 Actifed - PO TID PRN NASAL CONGESTION Tamsulosin HCl 0.4 mg 07/18/16 22:00 07/25/16 21:04 Flomax - PO 0.4 mg HS ANYELI Administration Thiamine HCl 100 mg 07/18/16 22:00 07/25/16 21:04 Vitamin B1 - PO 100 mg HS NAYELI Administration Medication(s) Change(s): Start Naltrexone 50 mg po daily Current Side Effect: No Lab tests ordered: Yes Lab tests reviewed: Yes Provider note:: Patient requests Vivitrol in order to curb his craving for heroin. He was told that Vivitrol is not part of the agency formulary but he can be prescribed Naltrexone which is an oral formulation of antiopoid receptor. Benefits vs risks were not only discussed with patient but he was provided with pamphlet regarding Naltrexone. He reported that he last used heroin on 07/12/16 which is 14 days ago Total face to face time:: 25 Mental Status Exam - Mental Status Exam Alert and Oriented to: Time, Place, Person Cognitive Function: Fair Patient Appearance: Well Groomed Mood: Hopeful, Euthymic Affect: Appropriate Patient Behavior: Cooperative Speech Pattern: Clear Voice Loudness: Normal Thought Process: Intact, Goal Oriented Thought Disorder: Not Present Hallucinations: None Suicidal Ideation: Denies Homicidal Ideation: Denies Insight/Judgement: Fair Sleep: Fair Appetite: Good Muscle strength/Tone: Normal Gait/Station: Normal Psychiatric Treatment Plan - Problem List (1) Opioid dependence with withdrawal Current Visit: No (2) Nicotine dependence Current Visit: No (3) Substance induced mood disorder Current Visit: No (4) Type II diabetes mellitus Current Visit: No Qualifiers: Diabetes mellitus complication status: without complication Diabetes mellitus public health veterinarian insulin use: without halfway use Qualified Code(s): E11.9 - Type 2 diabetes mellitus without complications (5) HTN (hypertension) Current Visit: No Qualifiers: Hypertension type: essential hypertension Qualified Code(s): I10 - Essential (primary) hypertension (6) Hepatitis C Current Visit: No Qualifiers: Viral hepatitis chronicity: chronic Hepatic coma status: without hepatic coma Qualified Code(s): B18.2 - Chronic viral hepatitis C (7) Hypertriglyceridemia Current Visit: No Initial treatment plan: 1) Start Naltrexone 50 mg po daily. 2) Monitor progress
[2016-07-26] MEDS: THIAMINE HCL 100 MG TABLET (FP) PO SCH (21:28)
[2016-07-26] MEDS: ASPIRIN 81 MG CHEWABLE TABLETS PO SCH (21:28)
[2016-07-26] MEDS: TAMSULOSIN HCL 0.4 MG CAP.ER.24H (FP) PO SCH (21:28)
[2016-07-27] MEDS: metFORMIN HCL 500 MG TABLET (FP) PO SCH ×2 (07:11→16:53)
[2016-07-27] MEDS: MINOXIDIL 2.5 MG TABLET PO SCH (09:54)
[2016-07-27] MEDS: MYCOPHENOLATE MOFETIL PO SCH ×2 (09:54→21:49)
[2016-07-27] MEDS: METOPROLOL TARTRATE 50 MG TABLET (FP) PO SCH ×2 (09:54→21:48)
[2016-07-27] MEDS: PRENATAL VITAMINS W/ FOLIC ACID TABLET (FP) PO SCH (09:54)
[2016-07-27] MEDS: TACROLIMUS 5 MG PO SCH ×2 (09:54→21:49)
[2016-07-27] MEDS ORDERED: NALTREXONE HCL 50 MG TABLET PO SCH (10:00)
--- NOTE | 2016-07-27 13:31 | PN ---
[facility] Progress Note Note: Attending follow up note: Patient observed with vomiting and diarrhea approximately an hour after administration of Naltrexone. Will discontinue Naltrexone and observe
[2016-07-27] MEDS: TAMSULOSIN HCL 0.4 MG CAP.ER.24H (FP) PO SCH (21:48)
[2016-07-27] MEDS: diphenhydrAMINE HCL 50 MG CAPSULE PO PRN (21:48)
[2016-07-27] MEDS: THIAMINE HCL 100 MG TABLET (FP) PO SCH (21:48)
[2016-07-27] MEDS: ASPIRIN 81 MG CHEWABLE TABLETS PO SCH (21:49)
[2016-07-28] MEDS: diphenhydrAMINE HCL 50 MG CAPSULE PO PRN (00:24)
[2016-07-28] MEDS: hydrOXYzine PAMOATE 50 MG CAPSULE (FP) PO PRN ×3 (02:12→21:26)
[2016-07-28] MEDS: metFORMIN HCL 500 MG TABLET (FP) PO SCH ×2 (06:10→16:51)
[2016-07-28] MEDS: TACROLIMUS 5 MG PO SCH ×2 (09:35→21:27)
[2016-07-28] MEDS: PRENATAL VITAMINS W/ FOLIC ACID TABLET (FP) PO SCH (09:35)
[2016-07-28] MEDS: MINOXIDIL 2.5 MG TABLET PO SCH (09:35)
[2016-07-28] MEDS: METOPROLOL TARTRATE 50 MG TABLET (FP) PO SCH ×2 (09:35→21:26)
[2016-07-28] MEDS: MYCOPHENOLATE MOFETIL PO SCH ×2 (09:36→21:27)
[2016-07-28] MEDS: ASPIRIN 81 MG CHEWABLE TABLETS PO SCH (21:26)
[2016-07-28] MEDS: THIAMINE HCL 100 MG TABLET (FP) PO SCH (21:26)
[2016-07-28] MEDS: TAMSULOSIN HCL 0.4 MG CAP.ER.24H (FP) PO SCH (21:27)
[2016-07-29] MEDS: metFORMIN HCL 500 MG TABLET (FP) PO SCH ×2 (07:19→16:53)
[2016-07-29] MEDS: MINOXIDIL 2.5 MG TABLET PO SCH (10:01)
[2016-07-29] MEDS: PRENATAL VITAMINS W/ FOLIC ACID TABLET (FP) PO SCH (10:01)
[2016-07-29] MEDS: METOPROLOL TARTRATE 50 MG TABLET (FP) PO SCH ×2 (10:01→21:07)
[2016-07-29] MEDS: MYCOPHENOLATE MOFETIL PO SCH ×2 (10:01→21:08)
[2016-07-29] MEDS: TACROLIMUS 5 MG PO SCH ×2 (10:01→21:08)
[2016-07-29] MEDS: THIAMINE HCL 100 MG TABLET (FP) PO SCH (21:07)
[2016-07-29] MEDS: ASPIRIN 81 MG CHEWABLE TABLETS PO SCH (21:07)
[2016-07-29] MEDS: hydrOXYzine PAMOATE 50 MG CAPSULE (FP) PO PRN (21:07)
[2016-07-29] MEDS: TAMSULOSIN HCL 0.4 MG CAP.ER.24H (FP) PO SCH (21:07)
[2016-07-30] MEDS: hydrOXYzine PAMOATE 50 MG CAPSULE (FP) PO PRN (06:49)
[2016-07-30] MEDS: metFORMIN HCL 500 MG TABLET (FP) PO SCH ×2 (08:18→16:37)
[2016-07-30] MEDS: METOPROLOL TARTRATE 50 MG TABLET (FP) PO SCH ×2 (09:52→21:22)
[2016-07-30] MEDS: TACROLIMUS 5 MG PO SCH ×2 (09:52→21:23)
[2016-07-30] MEDS: MYCOPHENOLATE MOFETIL PO SCH ×2 (09:52→21:24)
[2016-07-30] MEDS: PRENATAL VITAMINS W/ FOLIC ACID TABLET (FP) PO SCH (09:52)
[2016-07-30] MEDS: MINOXIDIL 2.5 MG TABLET PO SCH (09:52)
[2016-07-30] MEDS: TAMSULOSIN HCL 0.4 MG CAP.ER.24H (FP) PO SCH (21:22)
[2016-07-30] MEDS: THIAMINE HCL 100 MG TABLET (FP) PO SCH (21:22)
[2016-07-30] MEDS: ASPIRIN 81 MG CHEWABLE TABLETS PO SCH (21:22)
[2016-07-30] MEDS: diphenhydrAMINE HCL 50 MG CAPSULE PO PRN (21:25)
[2016-07-31] MEDS: diphenhydrAMINE HCL 50 MG CAPSULE PO PRN (01:30)
[2016-07-31] MEDS: metFORMIN HCL 500 MG TABLET (FP) PO SCH ×2 (07:15→16:52)
[2016-07-31] MEDS: PRENATAL VITAMINS W/ FOLIC ACID TABLET (FP) PO SCH (09:40)
[2016-07-31] MEDS: MYCOPHENOLATE MOFETIL PO SCH ×2 (09:40→21:24)
[2016-07-31] MEDS: TACROLIMUS 5 MG PO SCH ×2 (09:40→21:23)
[2016-07-31] MEDS: MINOXIDIL 2.5 MG TABLET PO SCH (09:40)
[2016-07-31] MEDS: METOPROLOL TARTRATE 50 MG TABLET (FP) PO SCH ×2 (09:40→21:22)
--- NOTE | 2016-07-31 17:33 | PN ---
Psychiatric Progress Note Vital Signs: Vital Signs Period Temp Pulse Resp BP Sys/Gaona Pulse Ox Last 24 Hr 97.4 F 75-90 18-18 130-154/78-89 Date of Session: 07/31/16 Chief Complaint:: Discharge Note HPI: Patient addressing Opoid Dependence comorbid with Nicotine Dependence and Substance-Induced Mood Disorder ROS: HTN, Hyperlipidemia, type 2 DM and Hepatitis C were medically managed Current Medications: Active Medications Generic Name Dose Route Start Last Admin Trade Name Freq PRN Reason Stop Dose Admin Acetaminophen 650 mg 07/18/16 15:07 Tylenol - PO Q4H PRN FEVER OR PAIN Al Hydroxide/Mg Hydroxide 30 ml 07/18/16 15:07 07/27/16 11:26 Mylanta Oral Suspension - PO 30 ml Q6H PRN Administration DYSPEPSIA Aspirin 81 mg 07/18/16 22:00 07/30/16 21:22 Asa - PO 81 mg HS NAYELI Administration Diphenhydramine HCl 50 mg 07/18/16 15:07 07/31/16 01:30 Benadryl - PO 50 mg HSMR1 PRN Administration FOR ITCHING Eucalyptus/Menthol/Phenol/Sorbitol 1 each 07/18/16 15:07 Cepastat Lozenge - MM Q4H PRN SORE THROAT Guaifenesin 10 ml 07/18/16 15:07 Robitussin Dm - PO Q6H PRN COUGH Hydroxyzine Pamoate 50 mg 07/18/16 15:07 07/30/16 06:49 Vistaril - PO 50 mg Q4H PRN Administration AGITATION Ibuprofen 400 mg 07/18/16 15:07 Motrin - PO Q6H PRN PAIN Loperamide HCl 4 mg 07/18/16 15:07 Imodium - PO Q6H PRN DIARRHEA Magnesium Hydroxide 30 ml 07/18/16 15:07 Milk Of Magnesia - PO DAILY PRN CONSTIPATION Metformin HCl 500 mg 07/18/16 16:30 07/31/16 16:52 Glucophage - PO 500 mg BIDAC NAYELI Administration Metoprolol Tartrate 100 mg 07/18/16 22:00 07/31/16 09:40 Lopressor - PO 100 mg BID NAYELI Administration Minoxidil 5 mg 07/19/16 10:00 07/31/16 09:40 Lonitin - PO 5 mg DAILY NAYELI Administration Non-Formulary Medication 500 mg 07/18/16 22:00 07/31/16 09:40 Mycophenolate Mofetil [Cellcept -] PO 500 mg BID NAYELI Administration Non-Formulary Medication 5 mg 07/18/16 22:00 07/31/16 09:40 Tacrolimus [Prograf] PO 5 mg BID NAYELI Administration Multivit/Folic Acid/Iron 1 tab 07/19/16 10:00 07/31/16 09:40 Vitamins (Sjr) - PO 1 tab DAILY NAYELI Administration Pseudoephedrine/Triprolidine 1 combo 07/18/16 15:07 Actifed - PO TID PRN NASAL CONGESTION Tamsulosin HCl 0.4 mg 07/18/16 22:00 07/30/16 21:22 Flomax - PO 0.4 mg HS NAYELI Administration Thiamine HCl 100 mg 07/18/16 22:00 07/30/16 21:22 Vitamin B1 - PO 100 mg HS NAYELI Administration Current Side Effect: No Lab tests ordered: Yes Lab tests reviewed: Yes Provider note:: Patient will complete this program on 08/01/16. He has met his treatment goals and will continue to address his issues in outpatient treatment at [facility] at [address] [place] [address]. 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 He is stable for discharge on 08/01/16 Total face to face time:: 35 Mental Status Exam - Mental Status Exam Alert and Oriented to: Time, Place, Person Cognitive Function: Fair Patient Appearance: Well Groomed Mood: Hopeful, Euthymic Affect: Appropriate Patient Behavior: Cooperative Speech Pattern: Clear Voice Loudness: Normal Thought Process: Intact, Goal Oriented Thought Disorder: Not Present Hallucinations: Denies Suicidal Ideation: Denies Homicidal Ideation: Denies Insight/Judgement: Fair Sleep: Fair Appetite: Good Muscle strength/Tone: Normal Gait/Station: Normal Psychiatric Treatment Plan - Problem List (1) Opioid dependence with withdrawal Current Visit: No (2) Nicotine dependence Current Visit: No (3) Substance induced mood disorder Current Visit: No (4) Type II diabetes mellitus Current Visit: No Qualifiers: Diabetes mellitus complication status: without complication Diabetes mellitus retail mortgage banker insulin use: without retail mortgage banker use Qualified Code(s): E11.9 - Type 2 diabetes mellitus without complications (5) HTN (hypertension) Current Visit: No Qualifiers: Hypertension type: essential hypertension Qualified Code(s): I10 - Essential (primary) hypertension (6) Hepatitis C Current Visit: No Qualifiers: Viral hepatitis chronicity: chronic Hepatic coma status: without hepatic coma Qualified Code(s): B18.2 - Chronic viral hepatitis C (7) Hypertriglyceridemia Current Visit: No Initial treatment plan: Patient is being discharged tomorrow and referred to [facility] for outpatient treatment
[2016-07-31] MEDS: TAMSULOSIN HCL 0.4 MG CAP.ER.24H (FP) PO SCH (21:22)
[2016-07-31] MEDS: THIAMINE HCL 100 MG TABLET (FP) PO SCH (21:22)
[2016-07-31] MEDS: hydrOXYzine PAMOATE 50 MG CAPSULE (FP) PO PRN (21:23)
[2016-07-31] MEDS: ASPIRIN 81 MG CHEWABLE TABLETS PO SCH (21:24)
[2016-08-01 06:36] VITALS: BP 140/78; PULSE 81; TEMP 98.3
[2016-08-01] MEDS: metFORMIN HCL 500 MG TABLET (FP) PO SCH (07:09)
[2016-08-01] MEDS: MYCOPHENOLATE MOFETIL PO SCH (09:30)
[2016-08-01] MEDS: PRENATAL VITAMINS W/ FOLIC ACID TABLET (FP) PO SCH (09:30)
[2016-08-01] MEDS: TACROLIMUS 5 MG PO SCH (09:30)
[2016-08-01] MEDS: MINOXIDIL 2.5 MG TABLET PO SCH (09:30)
[2016-08-01] MEDS ORDERED: PT OWN MED DRAWER 7, Y5N ONE (09:33)
== END 2016-08-01 09:43 | disposition home or self-care (01) | DRG 895 ==
LOC: YASAS 11:48 → Y3W 11:49
PROVIDERS: ADMIT Psychiatry & Neurology Psychiatry; ATTEND Psychiatry & Neurology Psychiatry
PROC: HZ42ZZZ Group Counseling for Substance Abuse Treatment, Cognitive-Behavioral (ICD-10-PCS; principal; 2016-07-18)
DX: F11.20 Opioid dependence, uncomplicated (principal); F17.210 Nicotine dependence, cigarettes, uncomplicated; F19.24 Other psychoactive substance dependence with psychoactive substance-induced mood disorder; I10 Essential (primary) hypertension; E78.5 Hyperlipidemia, unspecified; E11.9 Type 2 diabetes mellitus without complications; B18.2 Chronic viral hepatitis C; Z79.84 Long term (current) use of oral hypoglycemic drugs; E78.1 Pure hyperglyceridemia